=== PATIENT | male | born 1940 | race Caucasian/White ===

== ENCOUNTER 2018-09-04 19:02 | Inpatient (IN) | payer MEDICARE ==
[~2018-09-04] VITALS: Ht 180.3 cm; Wt 71.8 kg
--- NOTE | 2018-09-04 19:06 | NUR ---
PT TARUN FROM [facility]. PER REPORT PT WAS NOTED TO BE MORE ALTERED THAN USUAL. BASELINE UNKNOWN. RECTAL TEMP OF [address] MAINTENANCE SUPERVISOR. UNKNOWN HISTORY. GOWNED AND PLACE ON MONITOR. AWAITING MD GONZALEZ.
--- NOTE | 2018-09-04 19:23 | NUR ---
ASSISTANT ENGINEER AT BEDSIDE FOR BLOOD DRAW.
--- NOTE | 2018-09-04 19:28 | NUR ---
CALLED [facility] ([phone]), SPOKE WITH JUAN CARLOS ([phone]), SHE STATED THE PT NORMALLY RESPONDES TO HIS NAME, BUT IS NOT RESPODING HE NORMALLY DOES, SHE ALSO STATED THAT PT IS ON HOSPICE, BUT THAT THE FAMILY IS REQUESTING PT TO BE TREATED FULL CODE. SHE WAS UNABLE TO GIVE A MED LIST AT THE TIME OF THE CALL, HOWEVER SHE WOULD GIVE IT [facility] (UNKNOWN ETA). USE SECOND NUMBER LISTED ABOVE FOR CONTACT.
[2018-09-04] MEDS ORDERED: IV NS 0.9% 500 ML BAG IV ONE (19:30)
[2018-09-04 19:32] LABS: BASOPHILS % (AUTO) 0.4 % (0.0-2.0); EOSINOPHILS % (AUTO) 0.5 % (0.0-6.0); HEMATOCRIT 38 % (39-51); HEMOGLOBIN 12.7 g/dL (13.5-17.5); LYMPHOCYTES # (AUTO) 0.9 /CMM (0.8-4.8); LYMPHOCYTES % (AUTO) 9.5 % (20.0-44.0); MEAN CORPUSCULAR HGB CONC 33 g/dl (31.0-36.0); MEAN CORPUSCULAR VOLUME 93 fL (80-96); MONOCYTES # (AUTO) 0.6 /CMM (0.1-1.30); NEUTROPHILS # (AUTO) 7.9 /CMM (1.8-8.9); NEUTROPHILS % (AUTO) 83.6 % (43.0-81.0); PLATELET COUNT (AUTO) 166 /CMM (150-450); RED BLOOD CELL COUNT(AUTO) 4.12 MIL/uL (4.5-6.0); WHITE BLOOD COUNT (AUTO) 9.4 K/uL (4.3-11.0)
--- NOTE | 2018-09-04 19:35 | NUR ---
CALLED ANSWERING SERVICE OF DR DUMONT. PAGED SPOOL CLEANER HAND
[2018-09-04] MEDS ORDERED: ACETAMINOPHEN 650 MG/SUPP.RECT RC ONE ×2 (19:48→20:00)
[2018-09-04 19:50] LABS: ALANINE AMINOTRANSFERASE 9 U/L (12-78); ALBUMIN 2.1 g/dL (3.4-5.0); ALKALINE PHOSPHATASE 139 U/L (46-116); ASPARTATE AMINOTRANSFERASE 19 U/L (15-37); BILIRUBIN,DIRECT 0.1 mg/dL (0.0-0.2); BILIRUBIN,TOTAL 0.3 mg/dL (0.2-1.0); CALCIUM, SERUM 8.2 mg/dL (8.5-10.1); CARBON DIOXIDE 24 mmol/L (21-32); CHLORIDE 101 mmol/L (98-107); GLUCOSE 242 mg/dL (74-106); POTASSIUM 3.8 mmol/L (3.5-5.1); SODIUM SERUM 135 mmol/L (136-145); TOTAL PROTEIN, SERUM 5.7 g/dL (6.4-8.2); UREA NITROGEN, BLOOD 13 mg/dL (7-18)
[2018-09-04 19:56] LABS: APPEARANCE,URINE Turbid (CLEAR); BILIRUBIN,URINE Negative (NEGATIVE); BLOOD, URINE Small Ery/uL (NEGATIVE); COLOR,URINE Yellow (YELLOW); KETONES,URINE Negative (NEGATIVE); LEUKOCYTE ESTERASE ,URINE Large (NEGATIVE); NITRITE, URINE Positive (NEGATIVE); PH,URINE 6.5 (5.0-8.0); PROTEIN,URINE 100 mg/dl (NEGATIVE); UGLUCOSE Negative (NEGATIVE)
[2018-09-04] MEDS ORDERED: ALLO100T PO (20:03)
[2018-09-04] MEDS ORDERED: CARB-93 PO (20:04)
[2018-09-04] MEDS ORDERED: GABA-532 PO (20:05)
[2018-09-04] MEDS ORDERED: TAMS-12 GT (20:06)
[2018-09-04] MEDS ORDERED: ATOR10TA PO (20:06)
[2018-09-04] MEDS ORDERED: MULT1TAB73 PO (20:07)
[2018-09-04] MEDS ORDERED: ASPI-1169 PO (20:08)
[2018-09-04] MEDS ORDERED: QUET25TA PO (20:09)
[2018-09-04 20:11] LABS: BACTERIA,URINE Many /HPF (None Seen); SQUAMOUS EPITHELIAL CELL,UR Few /HPF (None Seen); WBC,URINE TOO NUMEROUS TO COUN /HPF (0-3)
[2018-09-04 20:12] LABS: URINE AMORPHOUS URATE Moderate /HPF (None Seen)
--- NOTE | 2018-09-04 20:35 | NUR ---
CALLED [facility] PAGED JUSTO
[2018-09-04] MEDS ORDERED: PIPERACILLIN /TAZOBACTAM 3.375 G VIAL IV ONE (20:42)
[2018-09-04] MEDS ORDERED: LEVOFLOXACIN 750 MG /D5W 150ML 150 ML IV ONE ×2 (20:42→21:00)
[2018-09-04] MEDS ORDERED: IV NS 0.9% 1,000 ML BAG IV ONE (21:00)
[2018-09-04] MEDS ORDERED: PIPERACILLIN /TAZOBACTAM 3.375 G in IV D5W 50 ML IV ONE (21:00)
--- NOTE | 2018-09-04 21:29 | NUR ---
REPORT GIVEN TO FALGUNI VUONG. PT AWAITING TRANSFER TO FLOOR.
[2018-09-04] MEDS ORDERED: HYDROCODONE/APAP 5/325MG 1 EACH TABLET PO PRN (21:30)
[2018-09-04] MEDS ORDERED: ZOLPIDEM TARTRATE 5 MG TABLET PO PRN (21:30)
[2018-09-04] MEDS ORDERED: MAG HYDROX/AL HYDROX/SIMETH 30 ML UDC PO PRN (21:30)
[2018-09-04] MEDS ORDERED: ONDANSETRON HCL/PF 4 MG/2 ML VIAL IVP PRN (21:30)
[2018-09-04] MEDS ORDERED: MAGNESIUM HYDROXIDE 30 ML UDC PO PRN (21:30)
[2018-09-04] MEDS ORDERED: ACETAMINOPHEN 325 MG TABLET PO PRN (21:30)
[2018-09-04 21:45] VITALS: BP 84/48
--- NOTE | 2018-09-04 21:51 | NUR ---
PT WAS TRANSPORTED TO [facility] FLOOR
[2018-09-04] MEDS: TAMSULOSIN 0.4 MG CAP.SR.24H GT SCH (22:00)
--- NOTE | 2018-09-04 22:00 | NUR ---
SENIOR ADMINISTRATIVE SERVICES OFFICER NOTE PATIENT ADMITTED FROM ER A/O X 1 WITH INCOHERENT WORDS. PATIENT UNABLE TO COMMUNICATE EFFECTIVELY. PATIENT HYPOTENSIVE 84/46 MD NOTIFIED ORDERED 125ML/NS TO BE GIVEN. WILL CONTINUE TO MONITOR. SKIN IS STILL WARM AND DRY TO TOUCH. PATIENT REPEATS WHAT RNS SAY. UNABLE TO TO ATTAIN ANY HX. CALLED [facility] NO RESPONSE WILL ENDORES AM TO CALL FOR PT HX. PATIENT HAS 20 G R AC PATENT INTACT FINISHING ABX/ FLUID FROM ER. PATIENT NOTED TO HAVE SACRAL SKIN BREAKDOWN. WOUND CONSULT PENDING. SAFETY PRECAUTIONS IN PLACE. RN WILL CONTINUE TO MONITOR.
[2018-09-04 22:02] LABS: ALANINE AMINOTRANSFERASE < 6 U/L (12-78); ALBUMIN 1.7 g/dL (3.4-5.0); ALKALINE PHOSPHATASE 118 U/L (46-116); ASPARTATE AMINOTRANSFERASE 18 U/L (15-37); BILIRUBIN,DIRECT 0.1 mg/dL (0.0-0.2); BILIRUBIN,TOTAL 0.3 mg/dL (0.2-1.0); TOTAL PROTEIN, SERUM 4.9 g/dL (6.4-8.2)
[2018-09-04] MEDS ORDERED: ZOLPIDEM TARTRATE 5 MG TABLET GT PRN (22:13)
[2018-09-04] MEDS ORDERED: MAGNESIUM HYDROXIDE 30 ML UDC GT PRN (22:14)
[2018-09-04] MEDS ORDERED: MAG HYDROX/AL HYDROX/SIMETH 30 ML UDC GT PRN (22:16)
[2018-09-04] MEDS ORDERED: VANCOMYCIN IV ONE (23:00)
[2018-09-04] MEDS ORDERED: NS 0.9% IV ONE (23:00)
--- NOTE | 2018-09-04 23:13 | NUR ---
JAZZ SINGER NOTE PATIENT A/O X 1, UNABLE TO FOLLOW INSTRUCTIONS UNABLE TO ADMINISTER PO MEDS, ANDONIAN AWARE NO NEW ORDERS GIVEN.
[2018-09-04] MEDS ORDERED: VANCOMYCIN 1 GM VIAL ONE (23:20)
[2018-09-05] VITALS: BP 79/50
--- NOTE | 2018-09-05 00:30 | NUR ---
PIG MACHINE CRANE OPERATOR NOTE RECHECKED PT BP, BP AT BASELINE 80'S SYSTOLIC. WILL RECHECK AGAIN. PATIENT SPEECH MORE COHERENT AT THIS TIME RN WILL CONTINUE TO MONITOR.
[2018-09-05] MEDS: IV NS 0.9% 1,000 ML IV PRN ×3 (00:40→23:12)
[2018-09-05] MEDS ORDERED: PIPERACILLIN /TAZOBACTAM 3.375 G VIAL IV ONE ×2 (00:42→05:04)
[2018-09-05] MEDS: PIPERACILLIN /TAZOBACTAM 3.375 G in IV D5W 50 ML IV SCH ×3 (00:46→12:06)
[2018-09-05 04:00] VITALS: BP 90/52
[2018-09-05 07:04] LABS: BASOPHILS % (AUTO) 0.2 % (0.0-2.0); EOSINOPHILS % (AUTO) 1.8 % (0.0-6.0); HEMATOCRIT 34 % (39-51); HEMOGLOBIN 11.3 g/dL (13.5-17.5); LYMPHOCYTES # (AUTO) 2.7 /CMM (0.8-4.8); MEAN CORPUSCULAR HGB CONC 33 g/dl (31.0-36.0); MEAN CORPUSCULAR VOLUME 94 fL (80-96); MONOCYTES # (AUTO) 0.6 /CMM (0.1-1.30); NEUTROPHILS # (AUTO) 4.6 /CMM (1.8-8.9); PLATELET COUNT (AUTO) 150 /CMM (150-450); RED BLOOD CELL COUNT(AUTO) 3.61 MIL/uL (4.5-6.0)
--- NOTE | 2018-09-05 07:30 | NUR ---
CENTRIFUGE OPERATOR OPENING NOTES RECEIVED REPORT FROM NAVIGATION OFFICER RN. PT HAD AN EPISODE OF HYPOTENSION. BP TRENDING UP. SYSTOLIC IN 90'S. PT IS CURRENTLY SLEEPING IN BED. NO OBVIOUS SIGNS OF SOB OR PAIN NOTED AT THIS TIME. ON MONITOR PT IS SB IN 50'S. BED IS LOCKED AND IN LOWEST POSITION WITH CALL LIGHT IN REACH. WILL CONTINUE TO MONITOR.
[2018-09-05 07:31] LABS: CHOLESTEROL 102 mg/dL (<200); HDL CHOLESTEROL 45 mg/dL (40-60); LDL 52 mg/dL (0-99); TRIGLYCERIDES 56 mg/dL (30-150)
--- NOTE | 2018-09-05 07:32 | NUR ---
CRYPTOLOGIST NOTE PATIENT TOLERATED THE NIGHT WITH POSITIVE TRENDING BP. POC ENDORSED TO AM FOR ROMMEL.
[2018-09-05 07:59] LABS: CALCIUM, SERUM 7.7 mg/dL (8.5-10.1); CARBON DIOXIDE 25 mmol/L (21-32); CHLORIDE 109 mmol/L (98-107); CREATININE 0.9 mg/dL (0.6-1.3); GLUCOSE 78 mg/dL (74-106); MAGNESIUM 1.8 mg/dL (1.8-2.4); PHOSPHORUS 3.2 mg/dL (2.5-4.9); POTASSIUM 4.8 mmol/L (3.5-5.1); SODIUM SERUM 141 mmol/L (136-145); UREA NITROGEN, BLOOD 10 mg/dL (7-18)
[2018-09-05 08:00] VITALS: BP 84/51
[2018-09-05] MEDS: MULTIVITAMINS,THERAGRAN 1 UDTAB TABLET GT SCH (09:00)
[2018-09-05] MEDS: CARBIDOPA/LEVODOPA 25/100 MG 1 UDTAB GT SCH ×2 (09:00→16:47)
[2018-09-05] MEDS: GABAPENTIN 100 MG CAPSULE GT SCH ×3 (09:00→16:47)
[2018-09-05] MEDS ORDERED: MULTIVITAMIN LIQ 5 ML UDC GT SCH (09:00)
[2018-09-05] MEDS: ASPIRIN 81 MG TAB.CHEW GT SCH (09:00)
[2018-09-05] MEDS: ALLOPURINOL 100 MG TABLET GT SCH (09:00)
--- NOTE | 2018-09-05 09:30 | NUR ---
PT IS CONFUSED AND DROWSY DOES NOT WANT TO BE AWAKEN TO TAKE MORNING MEDICATIONS.
[2018-09-05] MEDS ORDERED: FEE PK DOSING 1 MIN EA MC ONE (10:02)
[2018-09-05 12:00] VITALS: BP 99/65
[2018-09-05] MEDS: VANCOMYCIN 1 GM in IV D5W 250 ML IV SCH ×2 (12:07→23:46)
[2018-09-05] MEDS ORDERED: NEOMY SULF/BACITRAC ZN/POLY 15 GM TUBE TP SCH (14:30)
[2018-09-05 16:00] VITALS: BP 111/71
--- NOTE | 2018-09-05 16:32 | NUR ---
Spoke with Stacy- admin at the [facility] [phone] states patient resides at the [facility] and was on hospice care with [facility] [phone]. Hospice has been revoked when patient admitted to the hospital. Code status is DNR and Stacy from [facility] will fax POLST copy. Patient is bedbound, totally dependent with adl's. Has adequate DME at the facility. Current dc plan is to return to [facility] and reinstate hospice care. Addendum: 09/05/18 at 1633 by EL VILLATORO RN Amended: Links added.
[2018-09-05] MEDS: PIPERACILLIN /TAZOBACTAM 3.375 G in IV D5W 100 ML IV SCH (16:55)
[2018-09-05] MEDS: QUETIAPINE FUMARATE 25 MG TABLET GT SCH (17:59)
[2018-09-05] MEDS: ATORVASTATIN 10 MG TABLET GT SCH (18:00)
[2018-09-05] MEDS: HYDROGEL DRESSING 90 GM TUBE TP SCH ×2 (18:07→21:21)
[2018-09-05] MEDS: HYDROCODONE/APAP 5/325MG 1 EACH TABLET GT PRN (18:20)
--- NOTE | 2018-09-05 19:30 | NUR ---
RN NOTES RECEIVED PT. AWAKE ON BED, SR/ SINUS ARRHYTHMIA ON TELE MONITOR HR-81, ON BILATERAL ARM RESTRAINTS, CIRCULATION OF BILATERAL ARM WAS CHECKED, F/C DRAINING CLEAR YELLOW URINE, NO PAIN NOTED, NO SOB, SIDERAILSUIPX2, CONTINUE TO MONITOR
--- NOTE | 2018-09-05 19:31 | NUR ---
ESL TUTOR CLOSING NOTES GAVE REPORT TO UI UX DEVELOPER RN. PT HAD AN EPISODE OF HYPOTENSION. BP TRENDING UP. SYSTOLIC IN 90'S. PT IS CURRENTLY SLEEPING IN BED. NO OBVIOUS SIGNS OF SOB OR PAIN NOTED AT THIS TIME. ON MONITOR PT IS SB IN 50'S. BED IS LOCKED AND IN LOWEST POSITION WITH CALL LIGHT IN REACH. WILL ENDORSE CONTINUITY OF CARE TO UI UX DEVELOPER RN.
[2018-09-05 20:47] VITALS: BP 107/69
[2018-09-05] MEDS: MUPIROCIN OINT 2% 22 GM TUBE SCH (21:20)
[2018-09-05] MEDS: TAMSULOSIN 0.4 MG CAP.SR.24H GT SCH (21:20)
[2018-09-06] VITALS: BP 110/68
[2018-09-06] MEDS: PIPERACILLIN /TAZOBACTAM 3.375 G in IV D5W 100 ML IV SCH ×3 (01:13→17:04)
[2018-09-06 04:00] VITALS: BP 125/80
--- NOTE | 2018-09-06 06:26 | NUR ---
RN NOTES AWAKE, MORNING CARE RENDERED, NOT IN DISTRESS, NO PAIN NOTED, [id number] PT. NEEDS ATTENDED
--- NOTE | 2018-09-06 07:25 | NUR ---
RIGGING UP WORKER OPENING NOTES RECEIVED REPORT FROM SUPERVISOR PUBLIC MESSAGE SERVICE RN. PT IS RESTING IN BED WITH RESTRAINTS ON BILATERAL ARMS. PT IS CONFUSED AND NEEDS FREQUENT REORIENTATION. PT HAS A ANDUJAR DRAINING TO GRAVITY. PT SHOWS NO SIGNS OF SOB OR PAIN AT THIS PRESENT TIME. WILL CONTINUE TO MONITOR.
[2018-09-06 08:00] VITALS: BP 123/79
[2018-09-06] MEDS: GABAPENTIN 100 MG CAPSULE GT SCH ×3 (09:43→17:04)
[2018-09-06] MEDS: CARBIDOPA/LEVODOPA 25/100 MG 1 UDTAB GT SCH ×2 (09:43→17:04)
[2018-09-06] MEDS: MULTIVITAMINS,THERAGRAN 1 UDTAB TABLET GT SCH (09:43)
[2018-09-06] MEDS: ALLOPURINOL 100 MG TABLET GT SCH (09:43)
[2018-09-06] MEDS: ASPIRIN 81 MG TAB.CHEW GT SCH (09:43)
[2018-09-06] MEDS: MUPIROCIN OINT 2% 22 GM TUBE SCH ×2 (09:44→21:29)
[2018-09-06] MEDS: HYDROGEL DRESSING 90 GM TUBE TP SCH ×2 (09:45→21:29)
--- NOTE | 2018-09-06 10:08 | NUR ---
WOUND CARE CONSULT WOUND CARE RECEIVED CONSULT FOR SKIN BREAK DOWN ON SACRUM. WOUND CARE WILL DEFER CONSULT AND TREATMENT PLANS TO PLASTIC SURGICAL TEAM WHO ARE CURRENTLY FOLLOWING THIS PATIENT. PATIENT WITH AIDEN AT 10, ALL PRESSURE ULCER PREVENTION MEASURES ARE NOTED TO BE IN PLACE. WILL SEE PRN.
[2018-09-06 12:00] VITALS: BP 120/78
[2018-09-06] MEDS: VANCOMYCIN 1 GM in IV D5W 250 ML IV SCH (12:00)
[2018-09-06 16:00] VITALS: BP 134/66
[2018-09-06] MEDS: ATORVASTATIN 10 MG TABLET GT SCH (17:03)
[2018-09-06] MEDS: QUETIAPINE FUMARATE 25 MG TABLET GT SCH (17:04)
--- NOTE | 2018-09-06 19:10 | NUR ---
MS RN OPENING NOTES Received patient resting in bed. Patient is confused, needs frequent reorientation. Breathing even and unlabored. Not in any distress. IVATB of zosyn currently infusing. Fernández catheter in place- draining yellow urine. No signs of discomfort noted at this time. Isolation precaution maintained. Will continue to monitor accordingly
--- NOTE | 2018-09-06 19:11 | NUR ---
RN MS CLOSING NOTES GAVE REPORT TO INSURANCE PROCESSING CLERK RN. PT IS RESTING IN BED WITH RESTRAINTS ON BILATERAL ARMS. PT IS CONFUSED AND NEEDS FREQUENT REORIENTATION. PT HAS A ANDUJAR DRAINING TO GRAVITY. PT SHOWS NO SIGNS OF SOB OR PAIN AT THIS PRESENT TIME. ZOSYN IS CURRENTLY TRANSFUSING. WILL ENDORSE CONTINUITY OF CARE TO INSURANCE PROCESSING CLERK RN.
[2018-09-06 20:00] VITALS: BP 141/56
[2018-09-06] MEDS: TAMSULOSIN 0.4 MG CAP.SR.24H GT SCH (21:29)
[2018-09-06] MEDS: IV NS 0.9% 1,000 ML IV PRN (23:37)
[2018-09-07] MEDS ORDERED: VANCOMYCIN 0.75 GM in IV D5W 250 ML IV SCH ×2
[2018-09-07] MEDS: PIPERACILLIN /TAZOBACTAM 3.375 G in IV D5W 100 ML IV SCH ×3 (01:05→17:34)
--- NOTE | 2018-09-07 03:00 | NUR ---
RN NOTES Patient noted to have moved his bowels. Patient changed. Wound treatment done
[2018-09-07 04:00] VITALS: BP 119/66
--- NOTE | 2018-09-07 06:30 | NUR ---
MS RN CLOSING NOTES Patient resting in bed, oriented to self, needs frequent reorientation. Breathing even and unlabored. Not in any distress. Peripheral IV infusing at 125mL/hr. Fernández catheter in place- draining clear, yellow urine. No signs of discomfort noted at this time. Isolation precaution maintained. All needs attended to. Safety measures in place; call gunter within reach, bed in low, locked position. Will endorse ROMMEL to oncoming RN
[2018-09-07 07:21] LABS: CALCIUM, SERUM 8.1 mg/dL (8.5-10.1); CARBON DIOXIDE 27 mmol/L (21-32); CHLORIDE 108 mmol/L (98-107); GLUCOSE 86 mg/dL (74-106); POTASSIUM 3.9 mmol/L (3.5-5.1); SODIUM SERUM 141 mmol/L (136-145); UREA NITROGEN, BLOOD 9 mg/dL (7-18)
--- NOTE | 2018-09-07 07:25 | NUR ---
Nurse Notes: received report from the night nurse Mayra Valentin RN, In no respiratory distress. Fernández to gravity. NS is infusing at 125 cc per hour. heplock x 2 in right arm.
[2018-09-07 08:00] VITALS: BP 132/72
[2018-09-07] MEDS: ALLOPURINOL 100 MG TABLET GT SCH (09:32)
[2018-09-07] MEDS: CARBIDOPA/LEVODOPA 25/100 MG 1 UDTAB GT SCH ×2 (09:32→17:34)
[2018-09-07] MEDS: ASPIRIN 81 MG TAB.CHEW GT SCH (09:32)
[2018-09-07] MEDS: MULTIVITAMINS,THERAGRAN 1 UDTAB TABLET GT SCH (09:32)
[2018-09-07] MEDS: GABAPENTIN 100 MG CAPSULE GT SCH ×3 (09:32→17:34)
[2018-09-07] MEDS: MUPIROCIN OINT 2% 22 GM TUBE SCH ×2 (09:33→21:18)
[2018-09-07] MEDS: HYDROGEL DRESSING 90 GM TUBE TP SCH ×2 (09:33→21:18)
--- NOTE | 2018-09-07 12:41 | NUR ---
Nurse Notes: Urine culture sensitivity and ID will be ready tomorrow 0900[facility] Sourav Greer was notified.
[2018-09-07 13:16] VITALS: BP 98/54
[2018-09-07] MEDS: IV NS 0.9% 1,000 ML IV PRN (14:01)
--- NOTE | 2018-09-07 15:45 | NUR ---
Nurse Notes: Dr Matt Mccord called back and stated the debridement will not be done til sunday. patient will be on hospice after the Debridement. Remains on IV antibiotics, rocephin.
[2018-09-07 16:00] VITALS: BP 116/70
--- NOTE | 2018-09-07 16:06 | NUR ---
Nurse Notes: Dr Matt Mccord stated will not do the Debridement, okay to sent patient home with Hospice. Sourav Greer was text.
[2018-09-07] MEDS: ATORVASTATIN 10 MG TABLET GT SCH (18:02)
[2018-09-07] MEDS: QUETIAPINE FUMARATE 25 MG TABLET GT SCH (18:02)
--- NOTE | 2018-09-07 19:33 | NUR ---
SHIFT REPORT: report given to the night nurse Valdez Adler RN. 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 patient is not coughing. IV Normal saline is infusing, zosyn infusing over 4 hours.
[2018-09-07 20:00] VITALS: BP 93/50
--- NOTE | 2018-09-07 20:00 | NUR ---
PHYSICAL THERAPIST CLINIC DIRECTOR OPENING NOTES RECEIVED PATIENT ASLEEP, RESTING COMFORTABLY IN BED. NO SIGNS OF RESPIRATORY DISTRESS, OR SOB. NO SIGNS OF FACIAL GRIMACING, OR DISCOMFORT. PATIENT ON CONTACT ISOLATION FOR MRSA NARES. IV SITE PATENT AND INTACT. SAFETY PRECAUTIONS IMPLEMENTED. CALL LIGHT WITHIN REACH. WILL CONTINUE TO MONITOR PATIENT THROUGHOUT THE SHIFT.
[2018-09-07] MEDS: TAMSULOSIN 0.4 MG CAP.SR.24H GT SCH (21:21)
[2018-09-07 21:35] VITALS: BP 126/74
[2018-09-08] MEDS: IV NS 0.9% 1,000 ML IV PRN ×2 (00:07→18:56)
[2018-09-08] MEDS: PIPERACILLIN /TAZOBACTAM 3.375 G in IV D5W 100 ML IV SCH ×3 (00:25→17:59)
[2018-09-08 04:00] VITALS: BP_SYST 97; BP_SYST 99; BP_DIAS 57; BP_DIAS 61
--- NOTE | 2018-09-08 06:30 | NUR ---
RN/MS CLOSING NOTES PATIENT IS RESTING IN BED COMFORTABLY, ORIENTED TO SELF, NEEDS FREQUENT REORIENTATION. BREATHING EVEN AND UNLABORED. NO SIGNS OF RESPIRATORY DISTRESS. NO SIGNS OF SHORTNESS OF BREATH. PERIPHERAL IV INFUSING AT 125 ML/HR. ANDUJAR CATHETER IN PLACE- DRAINING CLEAR, YELLOW URINE. TOTAL OUTPUT IS 1700 ML OF URINE. NO SIGNS OF FACIAL GRIMACING OR DISCOMFORT NOTED AT THIS TIME. ISOLATION PRECAUTION MAINTAINED. PATIENT TURNED EVERY 2 HOURS. ALL NEEDS ATTENDED TO. SAFETY PRECAUTIONS IMPLEMENTED; CALL LIGHT WITH REACH, SIDERAILS UP X2, BED LOW, LOCKED POSITION. WILL ENDORSE TO AM SHIFT FOR CONTINUITY OF CARE.
--- NOTE | 2018-09-08 06:45 | NUR ---
RN NOTES WOUND CARE IMPLEMENTED ON SACRUM. APPLIED HYDROGEL AND MEPILEX TO COVER.
[2018-09-08 07:24] LABS: CARBON DIOXIDE 24 mmol/L (21-32); CHLORIDE 107 mmol/L (98-107); GLUCOSE 82 mg/dL (74-106); POTASSIUM 3.4 mmol/L (3.5-5.1); SODIUM SERUM 140 mmol/L (136-145); UREA NITROGEN, BLOOD 8 mg/dL (7-18)
[2018-09-08 08:00] VITALS: BP 126/71
[2018-09-08] MEDS ORDERED: POTASSIUM CHLORIDE 20 MEQ POWDER PACKET GT ONE (09:00)
[2018-09-08] MEDS ORDERED: POTASSIUM CHLORIDE 20 MEQ POWDER PACKET GT SCH (09:00)
[2018-09-08] MEDS: CARBIDOPA/LEVODOPA 25/100 MG 1 UDTAB GT SCH ×2 (09:37→17:58)
[2018-09-08] MEDS: MULTIVITAMINS,THERAGRAN 1 UDTAB TABLET GT SCH (09:37)
[2018-09-08] MEDS: ASPIRIN 81 MG TAB.CHEW GT SCH (09:37)
[2018-09-08] MEDS: ALLOPURINOL 100 MG TABLET GT SCH (09:37)
[2018-09-08] MEDS: GABAPENTIN 100 MG CAPSULE GT SCH ×3 (09:38→17:57)
[2018-09-08] MEDS: Z GUARD REMEDY 2 OZ OINT TP PRN ×2 (09:45→21:22)
[2018-09-08] MEDS: HYDROGEL DRESSING 90 GM TUBE TP SCH ×2 (09:45→21:22)
--- NOTE | 2018-09-08 10:15 | NUR ---
Dr Benjamin in and seen patient with orders for k level 3.4. talked to the patient power of finance attorney about the patient,s discharge planning process
[2018-09-08] MEDS: MUPIROCIN OINT 2% 22 GM TUBE SCH ×2 (10:36→21:23)
[2018-09-08 12:00] VITALS: BP 135/76
--- NOTE | 2018-09-08 12:19 | NUR ---
Dressing done to the coccyx area, cleaned and kept dry
[2018-09-08] MEDS: QUETIAPINE FUMARATE 25 MG TABLET GT SCH (17:58)
[2018-09-08] MEDS: ATORVASTATIN 10 MG TABLET GT SCH (17:58)
--- NOTE | 2018-09-08 19:20 | NUR ---
MS RN OPENING NOTES Received patient A/O x1, awake on Wynn's position on bed with bilateral soft wrist restraints noted. On RA, no SOB/respiratory distress noted. No signs of discomfort noted at this time. On fall precautions, call light within easy reach. Will continue to monitor accordingly.
[2018-09-08 20:00] VITALS: BP 103/58
[2018-09-08] MEDS: TAMSULOSIN 0.4 MG CAP.SR.24H GT SCH (21:23)
[2018-09-09] MEDS: PIPERACILLIN /TAZOBACTAM 3.375 G in IV D5W 100 ML IV SCH ×2 (00:29→09:41)
[2018-09-09] MEDS: IV NS 0.9% 1,000 ML IV PRN (02:43)
--- NOTE | 2018-09-09 02:49 | NUR ---
MS RN NOTES Patient noted have not sleep yet since the start of shift. Administered Ambien as ordered. Will continue to monitor accordingly.
[2018-09-09 04:00] VITALS: BP 118/73
[2018-09-09] MEDS: HYDROCODONE/APAP 5/325MG 1 EACH TABLET GT PRN ×3 (05:02→13:51)
--- NOTE | 2018-09-09 05:03 | NUR ---
MS RN NOTES Patient noted screaming, moaning and facial grimacing. Patient claimed in pain but unable to scale and specify where is the pain. Administered Boyden 5/325 as ordered with vanilla pudding. Patient tolerated the meds and pudding well. Will continue to monitor.
--- NOTE | 2018-09-09 06:57 | NUR ---
MS RN CLOSING NOTES Patient asleep on Wynn's position on bed. On RA, no SOB/respiratory distress noted. Afebrile the whole shift. No new unusualities noted. All due meds given as ordered. With bilateral soft wrist restraints as ordered, monitored accordingly. Endorsed to the next shift.
[2018-09-09 07:09] LABS: CALCIUM, SERUM 7.8 mg/dL (8.5-10.1); CARBON DIOXIDE 25 mmol/L (21-32); CHLORIDE 110 mmol/L (98-107); CREATININE 1.1 mg/dL (0.6-1.3); GLUCOSE 102 mg/dL (74-106); POTASSIUM 3.6 mmol/L (3.5-5.1); SODIUM SERUM 141 mmol/L (136-145); UREA NITROGEN, BLOOD 6 mg/dL (7-18)
[2018-09-09 08:00] VITALS: BP 114/61
[2018-09-09] MEDS: MULTIVITAMINS,THERAGRAN 1 UDTAB TABLET GT SCH (09:41)
[2018-09-09] MEDS: ASPIRIN 81 MG TAB.CHEW GT SCH (09:41)
[2018-09-09] MEDS: MUPIROCIN OINT 2% 22 GM TUBE SCH (09:41)
[2018-09-09] MEDS: ALLOPURINOL 100 MG TABLET GT SCH (09:41)
[2018-09-09] MEDS: CARBIDOPA/LEVODOPA 25/100 MG 1 UDTAB GT SCH (09:41)
[2018-09-09] MEDS: GABAPENTIN 100 MG CAPSULE GT SCH ×2 (09:41→13:53)
[2018-09-09] MEDS: HYDROGEL DRESSING 90 GM TUBE TP SCH (09:42)
== END 2018-09-09 16:10 | DRG 871 ==
LOC: ER 19:02 → TELE-TD 21:43 → TELE1 23:51 → MEDSG1 09-06 12:30
PROVIDERS: ADMIT Family Medicine; ATTEND Nurse Practitioner Acute Care
DX: A41.9 Sepsis, unspecified organism (principal); L89.153 Pressure ulcer of sacral region, stage 3; G93.41 Metabolic encephalopathy; E43 Unspecified severe protein-calorie malnutrition; N39.0 Urinary tract infection, site not specified; E87.2 Acidosis; E87.1 Hypo-osmolality and hyponatremia; R64 Cachexia; F02.81 Dementia in other diseases classified elsewhere, unspecified severity, with behavioral disturbance; D63.8 Anemia in other chronic diseases classified elsewhere; E78.5 Hyperlipidemia, unspecified; M10.9 Gout, unspecified; N40.0 Benign prostatic hyperplasia without lower urinary tract symptoms; Z79.82 Long term (current) use of aspirin; Z79.899 Other long term (current) drug therapy; Z66 Do not resuscitate; Z51.5 Encounter for palliative care; G20 Parkinson's disease; E86.1 Hypovolemia; E83.51 Hypocalcemia; R73.9 Hyperglycemia, unspecified; S71.112A Laceration without foreign body, left thigh, initial encounter; S71.111A Laceration without foreign body, right thigh, initial encounter; X58.XXXA Exposure to other specified factors, initial encounter; Y92.9 Unspecified place or not applicable; Z22.322 Carrier or suspected carrier of Methicillin resistant Staphylococcus aureus; B96.5 Pseudomonas (aeruginosa) (mallei) (pseudomallei) as the cause of diseases classified elsewhere
CPT/HCPCS: 36415; 71045-TC; 80048-TC; 80061-TC; 80076-TC; 80202-TC; 81000-TC; 83605-TC; 83735-TC; 84100-TC; 84484-TC; 85025-TC; 85730-TC; 87040-TC; 87081-TC; 87086-TC; 87186-TC; 92526; 92611-TC; A6248; A6403; G0378; J1956; J2543; J3370; J7030; J7040; J7042; J7050; J7060

== ENCOUNTER 2018-09-30 16:05 | Inpatient (IN) | payer MEDICARE ==
[~2018-09-30] VITALS: Ht 188 cm; Wt 65.8 kg
[~2018-09-30 16:05] MED LIST: ALLO100T PO; ASPI-1169 PO; ATOR10TA PO; CARB-93 PO; GABA-532 PO; MULT1TAB73 PO; QUET25TA PO; TAMS-12 GT
--- NOTE | 2018-09-30 16:13 | NUR ---
TARUN FROM BOARD AND CARE FOR C/O MORE ALTERED THAN USUAL. UNKNOWN LAST KNOWN WELL TIME PER FACILITY. BS 103 IN FIELD. TO ER BED8, AOX2, NOT IN DISTRESS, HOOKED TO MONITOR, CHANGED TO GOWN, PROVIDED W WARM BLANKET. DR DANIELSON AT BEDSIDE
[2018-09-30] MEDS ORDERED: IV NS 0.9% 500 ML BAG IV ONE (16:30)
[2018-09-30 16:43] LABS: BASOPHILS % (AUTO) 0.3 % (0.0-2.0); EOSINOPHILS % (AUTO) 3.2 % (0.0-6.0); HEMATOCRIT 38 % (39-51); HEMOGLOBIN 12.9 g/dL (13.5-17.5); LYMPHOCYTES # (AUTO) 2.4 /CMM (0.8-4.8); LYMPHOCYTES % (AUTO) 45.6 % (20.0-44.0); MEAN CORPUSCULAR HGB CONC 34 g/dl (31.0-36.0); MEAN CORPUSCULAR VOLUME 94 fL (80-96); MONOCYTES # (AUTO) 0.4 /CMM (0.1-1.30); MONOCYTES % (AUTO) 7.2 % (2.0-12.0); NEUTROPHILS # (AUTO) 2.3 /CMM (1.8-8.9); NEUTROPHILS % (AUTO) 43.7 % (43.0-81.0); PLATELET COUNT (AUTO) 184 /CMM (150-450); RED BLOOD CELL COUNT(AUTO) 4.08 MIL/uL (4.5-6.0); WHITE BLOOD COUNT (AUTO) 5.3 K/uL (4.3-11.0)
[2018-09-30 16:54] LABS: CALCIUM, SERUM 8.4 mg/dL (8.5-10.1); CARBON DIOXIDE 29 mmol/L (21-32); CHLORIDE 112 mmol/L (98-107); CREATININE 0.9 mg/dL (0.6-1.3); GLUCOSE 91 mg/dL (74-106); POTASSIUM 3.6 mmol/L (3.5-5.1); SODIUM SERUM 146 mmol/L (136-145); UREA NITROGEN, BLOOD 12 mg/dL (7-18)
[2018-09-30 16:56] LABS: SERUM AMMONIA 14 umol/L (11-32)
--- NOTE | 2018-09-30 16:59 | NUR ---
URINE SAMPLE SENT TO LAB
[2018-09-30 17:00] LABS: ALANINE AMINOTRANSFERASE 9 U/L (12-78); ALBUMIN 2.4 g/dL (3.4-5.0); ALCOHOL, BLOOD < 3 mg/dL (0-0); ALKALINE PHOSPHATASE 90 U/L (46-116); ASPARTATE AMINOTRANSFERASE 15 U/L (15-37); BILIRUBIN,DIRECT 0.1 mg/dL (0.0-0.2); BILIRUBIN,TOTAL 0.3 mg/dL (0.2-1.0); SALICYLATE < 2.8 mg/dL (2.8-20.0); TOTAL PROTEIN, SERUM 5.4 g/dL (6.4-8.2)
[2018-09-30 17:01] LABS: ACETAMINOPHEN < 2 ug/ml (10-30)
[2018-09-30 17:04] LABS: APPEARANCE,URINE Clear (CLEAR); BILIRUBIN,URINE Negative (NEGATIVE); BLOOD, URINE Negative Ery/uL (NEGATIVE); COLOR,URINE Yellow (YELLOW); KETONES,URINE Negative (NEGATIVE); LEUKOCYTE ESTERASE ,URINE Negative (NEGATIVE); NITRITE, URINE Negative (NEGATIVE); PROTEIN,URINE Negative (NEGATIVE); UGLUCOSE Negative (NEGATIVE); UROBILINOGEN,URINE 0.2 EU/dL (0.2)
[2018-09-30 17:15] LABS: THYROID STIMULATING HORMONE 1.872 uIU/mL (0.358-3.74)
[2018-09-30] MEDS ORDERED: TRAM50TA2 PO (17:39)
[2018-09-30] MEDS ORDERED: CLOT15CR63 TP (17:39)
--- NOTE | 2018-09-30 17:46 | NUR ---
CALLED NURSING SUP. FOR TELE BED
--- NOTE | 2018-09-30 17:59 | NUR ---
TELE 107 FOR AMS, PRASHANT SHIELDS ADMITTING
--- NOTE | 2018-09-30 18:31 | NUR ---
REPORT GIVEN TO MS RETANA OF TELE UNIT
--- NOTE | 2018-09-30 19:19 | NUR ---
REPORT GIVEN TO ADALI VUONG FOR ROMMEL
--- NOTE | 2018-09-30 19:55 | NUR ---
DEICER TESTER NOTE PATIENT RECEIVED FROM ER IN [facility]. NO S/S OF DISTRESS NOTED V/S WNL. PATIENT A/O X 1, REQUESTING FOOD. PATIENT IN NO APPARENT S.S OF RESPIRATORY OF CARDIAC DISTRESS. PATIENT SR ON THE MONITOR. PATIENT APPEARS SLIGHTLY AGITATED, PENDING ORDERS FROM MYLENE VYAS. PATIENT HAS 18G IN RFA. PATENT IN TACT. PATIENT BATHED AND CHANGED RENDESS NOTED ON GROIN AREA NAD 2ND TOE RIGHT FOOT. SAFETY PRECAUTIONS IN PLACE BED LOWEST POSITIONS SIDE RAILS UP X3. RN WILL CONTINUE TO JANES.
--- NOTE | 2018-09-30 19:55 | NUR ---
TELECOMMUNICATIONS SALES REPRESENTATIVE NOTE PATIENT RECEIVED FROM ER IN [facility]. PATIENT TRANSFERRED SAFETY. VS TAKEN WNL. NO S.S. OF ACUTE DISTRESS. PATIENT PLACED ON DECAL DECORATOR. PAUSES NOTED MD NOTIFIED STAT EKG ORDERED. PATIENT A/O X 1 UNABLE TO BE ORIENTED. PATIENT ABLE TO REPEAT COMMANDS, BUT UNABLE TO FOLLOW. PATIENT HAD 18 G IN RFA PATENT HOWEVER PATIENT PULLED IT OUT ON ADMISSION. ALYSON NOTIFIED ORDER FOR RESTRAINTS GIVEN. PATIENT GIVEN NEW IV 22 G IN TOSHA. PATIENT PLACED ON RESTRAINTS. PATIENT GIVEN BATH AND CHANGED. DIAPER NOTED TO HAVE YELLOW URINE. RN WILL CONTINUE TO MONITOR. AND GIVE CARE RENDERED.
[2018-09-30 20:00] VITALS: BP 130/86
--- NOTE | 2018-09-30 20:00 | NUR ---
PT WAS TRANSFERRED TO 107 IN STALE CONDITION UNDER ACLS PROTOCOL
--- NOTE | 2018-09-30 20:00 | NUR ---
MS VUONG NOTE LONG PAUSE NOTED ON EKG, STAT EKG ORDERED, ELIZABETH SHIELDS AWARE OF RESULTS. Addendum: 10/01/18 at 0638 by BROCK RIVERS RN LAXMI HART
[2018-09-30] MEDS ORDERED: Z GUARD REMEDY 2 OZ OINT TP PRN (21:00)
[2018-09-30] MEDS ORDERED: TRAMADOL HCL 50 MG TABLET PO PRN (21:00)
[2018-09-30] MEDS ORDERED: ACETAMINOPHEN 325 MG TABLET PO PRN (21:00)
[2018-09-30] MEDS ORDERED: ONDANSETRON HCL/PF 4 MG/2 ML VIAL IVP PRN (21:00)
--- NOTE | 2018-09-30 21:33 | NUR ---
PER DIEM REGISTERED NURSE NOTE CALLED PATIENTS NEXT OF JUSTINE QUICK [phone]. PER JUSTINE HE IS THE DPOA. HE STATES THE PATIENT WAS ADMITTED TO HOSPICE IN [place] AND HAS DNR. JUSTINE ALSO STATED THAT THE PATIENT SHOULD MAINTAIN DNR STATUS, BUT IS OK WITH INTUBATION. NOTIFIED OF CODE STATUS. JUSTINE AGREED TO DROP PAPER WORK AND COPIES OF DPOA AND POLST TOMORROW IN THE AM. WILL ENDORSE TO AM SHIFT. CALLED [facility] TO CONFIRM PATIENT PLACEMENT. [facility] CONFIRMED AND CONFIRMED PATIENTS ALLERGY TO [place]. NOTIFIED [facility] THAT NO RECORDS OF ADVANCED DIRECTIVE HAVE MADE IT TO THE HOSPITAL. AGREED TO FAX IN THE AM. FAX NUMBER GIVEN TO THEM. WILL ENDORSE TO AM TO FOLLOW UP WITH [facility].
[2018-09-30] MEDS: ENOXAPARIN SODIUM 40 MG/0.4 ML DISP.SYRIN SQ SCH (22:01)
[2018-09-30] MEDS: TAMSULOSIN 0.4 MG CAP.SR.24H GT SCH (22:01)
[2018-10-01] VITALS: BP 150/87
[2018-10-01] MEDS: IV 1/2NS 1000 ML 1,000 ML IV PRN ×2 (02:16→17:28)
[2018-10-01 04:00] VITALS: BP 138/68
[2018-10-01 06:16] LABS: BASOPHILS % (AUTO) 0.1 % (0.0-2.0); EOSINOPHILS % (AUTO) 2.9 % (0.0-6.0); HEMATOCRIT 36 % (39-51); LYMPHOCYTES # (AUTO) 2.7 /CMM (0.8-4.8); LYMPHOCYTES % (AUTO) 50.6 % (20.0-44.0); MEAN CORPUSCULAR HGB CONC 34 g/dl (31.0-36.0); MEAN CORPUSCULAR VOLUME 94 fL (80-96); MONOCYTES # (AUTO) 0.3 /CMM (0.1-1.30); NEUTROPHILS # (AUTO) 2.1 /CMM (1.8-8.9); NEUTROPHILS % (AUTO) 40.4 % (43.0-81.0); PLATELET COUNT (AUTO) 175 /CMM (150-450); RED BLOOD CELL COUNT(AUTO) 3.81 MIL/uL (4.5-6.0); WHITE BLOOD COUNT (AUTO) 5.3 K/uL (4.3-11.0)
[2018-10-01 06:41] LABS: CHOLESTEROL 113 mg/dL (<200); HDL CHOLESTEROL 48 mg/dL (40-60); LDL 50 mg/dL (0-99); THYROID STIMULATING HORMONE 1.589 uIU/mL (0.358-3.74); TRIGLYCERIDES 71 mg/dL (30-150)
[2018-10-01 06:50] LABS: ALANINE AMINOTRANSFERASE 12 U/L (12-78); ALBUMIN 2.3 g/dL (3.4-5.0); ALKALINE PHOSPHATASE 73 U/L (46-116); ASPARTATE AMINOTRANSFERASE 16 U/L (15-37); BILIRUBIN,TOTAL 0.4 mg/dL (0.2-1.0); CALCIUM, SERUM 8.1 mg/dL (8.5-10.1); CARBON DIOXIDE 27 mmol/L (21-32); CHLORIDE 111 mmol/L (98-107); GLUCOSE 84 mg/dL (74-106); MAGNESIUM 1.7 mg/dL (1.8-2.4); PHOSPHORUS 2.6 mg/dL (2.5-4.9); POTASSIUM 3.4 mmol/L (3.5-5.1); SODIUM SERUM 146 mmol/L (136-145); TOTAL PROTEIN, SERUM 5.2 g/dL (6.4-8.2); UREA NITROGEN, BLOOD 11 mg/dL (7-18)
[2018-10-01 07:18] LABS: IRON, SERUM 92 ug/dl (50-175); TOTAL IRON BINDING CAPACITY 177 ug/dl (250-450)
[2018-10-01 08:00] VITALS: BP 140/90
[2018-10-01] MEDS: GABAPENTIN 100 MG CAPSULE PO SCH ×3 (08:13→16:12)
[2018-10-01] MEDS: ASPIRIN 81 MG TAB.CHEW PO SCH (08:14)
[2018-10-01] MEDS: CARBIDOPA/LEVODOPA 25/100 MG 1 UDTAB PO SCH ×2 (08:14→16:12)
[2018-10-01] MEDS: CLOTRIMAZOLE 1% 15 GM TUBE TP SCH ×3 (08:14→17:15)
[2018-10-01] MEDS: ALLOPURINOL 100 MG TABLET PO SCH (08:14)
--- NOTE | 2018-10-01 09:47 | NUR ---
WOUND CARE CONSULT: PT PRESENTS WITH SACRAL SCARRING, PRESENT ON ADMISSION. RECOMMENDATIONS MADE FOR SKIN PROTECTION AND DISCUSSED WITH NURSING STAFF. PT HAS BEEN FOLLOWED BY PLASTIC SURGERY TEAM FOR WOUND TREATMENT. WILL SEE PRN. [facility].
[2018-10-01] MEDS ORDERED: POLYVINYL ALCOHOL 15 ML BOTTLE EACHEYE PRN (12:00)
[2018-10-01] MEDS ORDERED: POTASSIUM CHLORIDE 20 MEQ TAB.PRT.SR PO SCH (12:00)
[2018-10-01 16:00] VITALS: BP 132/76
[2018-10-01] MEDS: ENSURE ENLIVE 237 ML LIQUID (VANILLA) PO SCH (16:12)
[2018-10-01] MEDS: Magnesium 1GM/D5W 100ML PREMIX 100 ML IV SCH ×2 (16:55→17:15)
[2018-10-01] MEDS: QUETIAPINE FUMARATE 25 MG TABLET PO SCH (17:14)
[2018-10-01] MEDS: ATORVASTATIN 10 MG TABLET PO SCH (17:14)
--- NOTE | 2018-10-01 19:22 | NUR ---
MS RN NOTES RECEIVED PT ON BED. CONFUSED. ON BILATERAL SOFT RESTRAINTS. ON NASAL CANNULA 2LPM NO RESPIRATORY DISTRESS NOTED. IV ACCESS ANALISA MIDLINE NS @ 75CC/HR . HEAD OF BED ELEVATED. SIDE RAILS UP. CALL LIGHT WITHIN REACH. BED ALARM ON. BED IN LOCK AND LOW POSITION. WILL MONITOR PT CLOSELY.
[2018-10-01 20:00] VITALS: BP 114/75
[2018-10-01] MEDS: TAMSULOSIN 0.4 MG CAP.SR.24H GT SCH (21:07)
[2018-10-01] MEDS: ENOXAPARIN SODIUM 40 MG/0.4 ML DISP.SYRIN SQ SCH (21:07)
[2018-10-02 04:00] VITALS: BP 145/70
[2018-10-02 04:10] VITALS: BP 145/70
[2018-10-02 06:25] LABS: BASOPHILS % (AUTO) 0.2 % (0.0-2.0); EOSINOPHILS % (AUTO) 2.7 % (0.0-6.0); HEMATOCRIT 39 % (39-51); HEMOGLOBIN 13.1 g/dL (13.5-17.5); LYMPHOCYTES # (AUTO) 2.6 /CMM (0.8-4.8); LYMPHOCYTES % (AUTO) 29.9 % (20.0-44.0); MEAN CORPUSCULAR HGB CONC 33 g/dl (31.0-36.0); MEAN CORPUSCULAR VOLUME 95 fL (80-96); MONOCYTES # (AUTO) 0.6 /CMM (0.1-1.30); MONOCYTES % (AUTO) 6.5 % (2.0-12.0); NEUTROPHILS # (AUTO) 5.4 /CMM (1.8-8.9); NEUTROPHILS % (AUTO) 60.7 % (43.0-81.0); PLATELET COUNT (AUTO) 176 /CMM (150-450); RED BLOOD CELL COUNT(AUTO) 4.13 MIL/uL (4.5-6.0); WHITE BLOOD COUNT (AUTO) 8.8 K/uL (4.3-11.0)
--- NOTE | 2018-10-02 06:36 | NUR ---
MS RN NOTES NO ACUTE CHANGES NOTED DURING THE SHIFT. NO RESPIRATORY DISTRESS NOTED. WILL ENDORSE TO THE AM NURSE FOR CONTINUITY OF CARE.
[2018-10-02 06:56] LABS: CALCIUM, SERUM 8.1 mg/dL (8.5-10.1); CARBON DIOXIDE 27 mmol/L (21-32); CHLORIDE 106 mmol/L (98-107); CREATININE 1.2 mg/dL (0.6-1.3); GLUCOSE 86 mg/dL (74-106); PHOSPHORUS 2.7 mg/dL (2.5-4.9); POTASSIUM 3.8 mmol/L (3.5-5.1); SODIUM SERUM 139 mmol/L (136-145); UREA NITROGEN, BLOOD 12 mg/dL (7-18)
--- NOTE | 2018-10-02 07:00 | NUR ---
RN OPENING NOTES RECEIVED PATIENT ON BED. CONFUSED. ON BILATERAL SOFT RESTRAINTS. ON NASAL CANNULA 2LPM NO RESPIRATORY DISTRESS NOTED. IV ACCESS ANALISA MIDLINE NS @ 75CC/HR, INTACT AND PATENT. HEAD OF BED ELEVATED. SIDE RAILS UP. CALL LIGHT WITHIN REACH. BED ALARM ON. BED IN LOCK AND LOW POSITION. WILL MONITOR ACCORDINGLY
[2018-10-02 08:00] VITALS: BP 112/67
[2018-10-02] MEDS: ALLOPURINOL 100 MG TABLET PO SCH (08:35)
[2018-10-02] MEDS: ENSURE ENLIVE 237 ML LIQUID (VANILLA) PO SCH ×2 (08:35→17:37)
[2018-10-02] MEDS: ASPIRIN 81 MG TAB.CHEW PO SCH (08:35)
[2018-10-02] MEDS: GABAPENTIN 100 MG CAPSULE PO SCH ×3 (08:35→17:31)
[2018-10-02] MEDS: CLOTRIMAZOLE 1% 15 GM TUBE TP SCH ×4 (08:36→17:37)
[2018-10-02] MEDS: CARBIDOPA/LEVODOPA 25/100 MG 1 UDTAB PO SCH ×2 (08:36→17:31)
[2018-10-02] MEDS: IV 1/2NS 1000 ML 1,000 ML IV PRN (08:46)
[2018-10-02 16:00] VITALS: BP 129/75
[2018-10-02] MEDS: QUETIAPINE FUMARATE 25 MG TABLET PO SCH (17:31)
[2018-10-02] MEDS: ATORVASTATIN 10 MG TABLET PO SCH (17:31)
--- NOTE | 2018-10-02 19:30 | NUR ---
RN CLOSING NOTES PATIENT IN STABLE CONDITION. ALL NEEDS ATTENDED AND PROVIDED. ALL DUE MEDICATIONS GIVEN ORDERED. KEPT PATIENT SAFE AND COMFORTABLE. STILL ON BILATERAL RESTRAINTS, PULLING IV LINES AND GETTING OUT OF BED. BED IN LOW/LOCKED POSITION, SIDERAILS UP, HOB ELEVATED. BED ALARM ON. FOR DISCHARGE, IT SYSTEMS MANAGER TIME AT 1999. ENDORSED TO NIGHT RN FOR ROMMEL.
--- NOTE | 2018-10-02 19:32 | NUR ---
MS RN OPENING NOTES: RECIEVED PT IN STABLE CONDITION. GOT ENDORSEMENT FOR D/C BACK TO SNIFF AT 8 PM. PT CURRENTLY IN NO DISTRESS AND A OX1. WILL CONTINUE TO MONITER UNTIL DISCHARGE.
[2018-10-02 20:00] VITALS: BP 112/70
[2018-10-02] MEDS: TAMSULOSIN 0.4 MG CAP.SR.24H GT SCH (21:51)
[2018-10-02] MEDS: ENOXAPARIN SODIUM 40 MG/0.4 ML DISP.SYRIN SQ SCH (21:51)
--- NOTE | 2018-10-02 23:53 | NUR ---
PT PICKED UP BY RN CHARGE, REPORT ENDORSED. TO BE TAKEN BACK TO BOARD AND CARE SNIFF WHERE THERE ARE INSTRUCTIONS FOR HOSPICE. CURRENTLY DNRI/DNI. ALL LINES REMOVED AND ID TAKEN OFF. PT IN STABLE CONDITION UPON DISCHARGE AND IN NO ACUTE DISTRESS.
== END 2018-10-03 00:15 | disposition home or self-care (01) | DRG 640 ==
LOC: ER 16:12 → TELE1 18:44 → MEDSG1 10-01 10:34
PROVIDERS: ADMIT Nurse Practitioner Acute Care; ATTEND Nurse Practitioner Acute Care
PROC: 05HB33Z Insertion of Infusion Device into Right Basilic Vein, Percutaneous Approach (ICD-10-PCS; principal; 2018-10-01)
DX: E86.0 Dehydration (principal); G93.41 Metabolic encephalopathy; E87.0 Hyperosmolality and hypernatremia; E78.5 Hyperlipidemia, unspecified; F02.80 Dementia in other diseases classified elsewhere, unspecified severity, without behavioral disturbance, psychotic disturbance, mood disturbance, and anxiety; I10 Essential (primary) hypertension; N40.0 Benign prostatic hyperplasia without lower urinary tract symptoms; Z79.899 Other long term (current) drug therapy; Z79.82 Long term (current) use of aspirin; G20 Parkinson's disease; L30.4 Erythema intertrigo; M10.9 Gout, unspecified; L98.9 Disorder of the skin and subcutaneous tissue, unspecified; T43.505A Adverse effect of unspecified antipsychotics and neuroleptics, initial encounter; Y92.099 Unspecified place in other non-institutional residence as the place of occurrence of the external cause
CPT/HCPCS: 36415; 36569; 70450-TC; 71045-TC; 80048-TC; 80053-TC; 80061-TC; 80076-TC; 80305; 81000-TC; 82140-TC; 83540-TC; 83605-TC; 83735-TC; 84100-TC; 84443-TC; 84484-TC; 85025-TC; 85730-TC; 87040-TC; 87081-TC; G0378; G0480; J1650; J3475; J3490; J7040

== ENCOUNTER 2018-10-03 17:42 | Inpatient (IN) | payer MEDICARE ==
[~2018-10-03] VITALS: Ht 188 cm; Wt 73.6 kg
[~2018-10-03 17:42] MED LIST changes: +CLOT15CR63 TP; +TRAM50TA2 PO
--- NOTE | 2018-10-03 17:45 | NUR ---
DR BROWNLEE AT BEDSIDE
--- NOTE | 2018-10-03 17:46 | NUR ---
TARUN FROM FEVER AND ALOC; DISCHARGED FROM [facility] 10/02/18, TO ER BED 10, HOOKED TO MONITOR, CHANGED TO GOWN, PROVIDED W WARM BLANKET, AWAITING MD GONZALEZ
[2018-10-03] MEDS ORDERED: IV NS 0.9% 1,000 ML BAG IV ONE (18:00)
[2018-10-03 18:47] LABS: BASOPHILS # (AUTO) 0.1 /CMM (0.0-0.2); BASOPHILS % (AUTO) 0.3 % (0.0-2.0); EOSINOPHILS % (AUTO) 0.1 % (0.0-6.0); HEMATOCRIT 44 % (39-51); HEMOGLOBIN 14.3 g/dL (13.5-17.5); LYMPHOCYTES # (AUTO) 2.2 /CMM (0.8-4.8); LYMPHOCYTES % (AUTO) 13.1 % (20.0-44.0); MEAN CORPUSCULAR HGB CONC 33 g/dl (31.0-36.0); MEAN CORPUSCULAR VOLUME 95 fL (80-96); MONOCYTES # (AUTO) 0.9 /CMM (0.1-1.30); MONOCYTES % (AUTO) 5.4 % (2.0-12.0); NEUTROPHILS # (AUTO) 13.7 /CMM (1.8-8.9); NEUTROPHILS % (AUTO) 81.1 % (43.0-81.0); PLATELET COUNT (AUTO) 172 /CMM (150-450); RED BLOOD CELL COUNT(AUTO) 4.56 MIL/uL (4.5-6.0); WHITE BLOOD COUNT (AUTO) 16.9 K/uL (4.3-11.0)
[2018-10-03 18:57] LABS: CALCIUM, SERUM 8.6 mg/dL (8.5-10.1); CARBON DIOXIDE 29 mmol/L (21-32); CHLORIDE 106 mmol/L (98-107); CREATININE 1.5 mg/dL (0.6-1.3); GLUCOSE 114 mg/dL (74-106); POTASSIUM 4.8 mmol/L (3.5-5.1); SODIUM SERUM 140 mmol/L (136-145); UREA NITROGEN, BLOOD 25 mg/dL (7-18)
[2018-10-03 18:58] LABS: APPEARANCE,URINE Cloudy (CLEAR); BILIRUBIN,URINE Negative (NEGATIVE); BLOOD, URINE Large Ery/uL (NEGATIVE); COLOR,URINE Yellow (YELLOW); KETONES,URINE Negative (NEGATIVE); LEUKOCYTE ESTERASE ,URINE Large (NEGATIVE); NITRITE, URINE Negative (NEGATIVE); PROTEIN,URINE 100 mg/dl (NEGATIVE); UGLUCOSE Negative (NEGATIVE); UROBILINOGEN,URINE 0.2 EU/dL (0.2)
[2018-10-03] MEDS ORDERED: VANCOMYCIN 1 GM in IV D5W 250 ML IV ONE (19:00)
[2018-10-03] MEDS ORDERED: LEVOFLOXACIN 750 MG /D5W 150ML PIGGYBACK IV ONE (19:00)
[2018-10-03 19:02] LABS: ALANINE AMINOTRANSFERASE 13 U/L (12-78); ALBUMIN 2.4 g/dL (3.4-5.0); ALKALINE PHOSPHATASE 86 U/L (46-116); ASPARTATE AMINOTRANSFERASE 17 U/L (15-37); BILIRUBIN,DIRECT 0.1 mg/dL (0.0-0.2); BILIRUBIN,TOTAL 0.5 mg/dL (0.2-1.0); TOTAL PROTEIN, SERUM 6.2 g/dL (6.4-8.2)
[2018-10-03 19:09] LABS: BACTERIA,URINE Many /HPF (None Seen); RBC,URINE 21-50 /HPF (0-2); SQUAMOUS EPITHELIAL CELL,UR Few /HPF (None Seen); WBC,URINE TOO NUMEROUS TO COUN /HPF (0-3)
[2018-10-03] MEDS ORDERED: VANCOMYCIN 1 GM VIAL ONE (19:14)
--- NOTE | 2018-10-03 19:20 | NUR ---
PT NOTED WITH 02 SAT OF 92%. PLACED ON O2 VIA NC @ 2LPM SATTING AT 98%. MD MORRISON
[2018-10-03] MEDS ORDERED: IV NS 0.9% 1,000 ML IV ONE (19:30)
--- NOTE | 2018-10-03 19:32 | NUR ---
REPORT GIVEN TO MARYJO VUONG FOR ROMMEL
[2018-10-03] MEDS ORDERED: LEVOFLOXACIN 750 MG /D5W 150ML 150 ML IV ONE (20:18)
--- NOTE | 2018-10-03 20:41 | NUR ---
TELE BED 315-2
--- NOTE | 2018-10-03 21:24 | NUR ---
Fatemeh dominguez in [facility] - 10/03/18 at 2125 by TOMASZ REPORT GIVEN TO CAROLANN AKINS FOR ROMMEL. PT TO 315-2
--- NOTE | 2018-10-03 21:25 | NUR ---
REPORT GIVEN TO CAROLANN AKINS FOR ROMMEL. PT TO 315-2
--- NOTE | 2018-10-03 21:26 | NUR ---
motor operator notes Received Info from ER nurse CAROLANN Blake.
[2018-10-03 22:00] VITALS: BP 111/72
--- NOTE | 2018-10-03 22:01 | NUR ---
PT TRANSPORTED TO UNIT ON [facility]UL [facility]OROWITZ RN AND EMT AT BEDSIDE W/ ACLS PROTOCOL. NAD NOTED DURING TRANSPORT.
--- NOTE | 2018-10-03 22:15 | NUR ---
drapery cutter machine opening notes Received Pt from ER nurse CAROLANN Blake. Pt brought to the unit at 2150 by a gurgemini via ACLS. Pt is alert and oriented X1. Pt is laying in bed comfortably. Respiration is normal. NO SOB. No nausea or vomiting. No S/S of distress noted. PT is on carrier loader-SR. BP 111/72, P 113, TEMP 98.2, O2 SAT 93% ON 2L NC, R 18. Skin assessment checked and pictures taken and placed photos in Pt's chart. Skin care provided. Zguard and mepilex applied in sacrum area. Warm blanket applied for comfort. Instructed to call. Safety precautions is maintained. Bed at low position, brakes on, side railsX3, bed alarm on and call light is within reach.
[2018-10-03] MEDS ORDERED: ACETAMINOPHEN 325 MG TABLET PO PRN (22:30)
[2018-10-03] MEDS ORDERED: MAGNESIUM HYDROXIDE 30 ML UDC PO PRN (22:30)
[2018-10-03] MEDS ORDERED: Z GUARD REMEDY 2 OZ OINT TP PRN (22:30)
[2018-10-03] MEDS ORDERED: MAG HYDROX/AL HYDROX/SIMETH 30 ML UDC PO PRN (22:30)
[2018-10-03] MEDS ORDERED: ONDANSETRON HCL/PF 4 MG/2 ML VIAL IVP PRN (22:30)
--- NOTE | 2018-10-03 22:54 | NUR ---
player piano technician notes Called and faxed about Pt's medication Cefepime to nursing endless track vehicle supervisor.
[2018-10-03] MEDS: IV NS 0.9% 1,000 ML IV PRN (23:06)
[2018-10-03] MEDS ORDERED: CEFEPIME 1 GM VIAL ONE (23:20)
[2018-10-03] MEDS: CEFEPIME 2 GM in IV D5W 100 ML IV SCH (23:30)
--- NOTE | 2018-10-04 03:00 | NUR ---
software engineer advisor notes Pt's resting in bed comfortably. NO S/S of distress noted. Will continue to monitor.
[2018-10-04 05:32] VITALS: BP 100/67
[2018-10-04 07:08] LABS: BASOPHILS % (AUTO) 0.2 % (0.0-2.0); EOSINOPHILS % (AUTO) 0.1 % (0.0-6.0); HEMATOCRIT 36 % (39-51); HEMOGLOBIN 12.1 g/dL (13.5-17.5); LYMPHOCYTES # (AUTO) 1.8 /CMM (0.8-4.8); LYMPHOCYTES % (AUTO) 18.8 % (20.0-44.0); MEAN CORPUSCULAR HGB CONC 33 g/dl (31.0-36.0); MEAN CORPUSCULAR VOLUME 95 fL (80-96); MONOCYTES # (AUTO) 0.6 /CMM (0.1-1.30); MONOCYTES % (AUTO) 5.8 % (2.0-12.0); NEUTROPHILS # (AUTO) 7.4 /CMM (1.8-8.9); NEUTROPHILS % (AUTO) 75.1 % (43.0-81.0); PLATELET COUNT (AUTO) 122 /CMM (150-450); RED BLOOD CELL COUNT(AUTO) 3.82 MIL/uL (4.5-6.0); WHITE BLOOD COUNT (AUTO) 9.8 K/uL (4.3-11.0)
--- NOTE | 2018-10-04 07:15 | NUR ---
telephone advice nurse closing notes Pt is resting in bed comfortably. Awaken easily. NO SOB. No nausea or vomiting. NO S/S of distress noted. VS is stable. Pt is on operations supervisor chemical cleaning-SR. IV sites on RFA #20 is intact, patent and infusing well NS @100ml/hr. Routine meds were given and skin care provided. Safety precautions is maintained. Bed at low position and call light is within reach. Will endorse to morning nurse for ROMMEL.
[2018-10-04 07:26] LABS: CALCIUM, SERUM 7.7 mg/dL (8.5-10.1); CARBON DIOXIDE 24 mmol/L (21-32); CHLORIDE 111 mmol/L (98-107); CHOLESTEROL 79 mg/dL (<200); CREATININE 1.4 mg/dL (0.6-1.3); GLUCOSE 89 mg/dL (74-106); HDL CHOLESTEROL 38 mg/dL (40-60); LDL 31 mg/dL (0-99); MAGNESIUM 1.8 mg/dL (1.8-2.4); PHOSPHORUS 3.3 mg/dL (2.5-4.9); POTASSIUM 3.7 mmol/L (3.5-5.1); SODIUM SERUM 141 mmol/L (136-145); THYROID STIMULATING HORMONE 1.234 uIU/mL (0.358-3.74); TRIGLYCERIDES 46 mg/dL (30-150); UREA NITROGEN, BLOOD 25 mg/dL (7-18)
[2018-10-04 08:00] VITALS: BP 119/62
--- NOTE | 2018-10-04 08:00 | NUR ---
m/s painter helper sign: initial assessment received pt in bed awake, alert to self only, pt unable comprehend. pt is confused and disoriented to time, place, and situation. reality orientation provided prn. no apparent distress noted. will continue to monitor.
[2018-10-04] MEDS: MULTIVITAMINS,THERAGRAN 1 UDTAB TABLET PO SCH (08:43)
[2018-10-04] MEDS: CARBIDOPA/LEVODOPA 25/100 MG 1 UDTAB PO SCH ×2 (08:43→17:14)
[2018-10-04] MEDS: ALLOPURINOL 100 MG TABLET PO SCH (08:43)
[2018-10-04] MEDS: GABAPENTIN 100 MG CAPSULE PO SCH ×3 (08:43→17:14)
[2018-10-04] MEDS: ASPIRIN 81 MG TAB.CHEW PO SCH (08:43)
[2018-10-04] MEDS ORDERED: FEE PK DOSING 1 MIN EA MC ONE (08:44)
[2018-10-04] MEDS ORDERED: Medication Not On Formulary EA (Multivitamins 1 TAB) PO SCH (09:00)
--- NOTE | 2018-10-04 09:30 | NUR ---
m/s patient registration clerk: notes aram (acnp) here and informed md that pt keeps playing with his tele box by removing equipment with order to d'c tele. order read back and carried out and acknowledged.
--- NOTE | 2018-10-04 10:10 | NUR ---
m/s health education director: md visit seen and examined by aram (nanette) with order to start pt on puree diet. order carried out and acknowledged.
--- NOTE | 2018-10-04 10:28 | NUR ---
WOUND CARE CONSULT: PT FOLLOWED BY PLASTIC SURGERY TEAM FOR WOUND CARE. DEFER TO SURGICAL TEAM FOR WOUND TREATMENT PLAN. SKIN PROTECTION DISCUSSED WITH NURSING STAFF. WILL SEE PRN.
[2018-10-04] MEDS: IV NS 0.9% 1,000 ML IV PRN (11:40)
[2018-10-04] MEDS: CLOTRIMAZOLE 1% 15 GM TUBE TP SCH ×2 (11:47→17:19)
--- NOTE | 2018-10-04 12:00 | NUR ---
m/s drift miner: nephro consult seen by dr. villegas.
--- NOTE | 2018-10-04 13:25 | NUR ---
m/s heating fixture tender: plastic surgeon consult seen and examined by kanika fox) with new orders. orders acknowledged.
[2018-10-04] MEDS ORDERED: CLOTRIMAZOLE 1% 15 GM TUBE TP SCH (13:30)
[2018-10-04] MEDS: VANCOMYCIN 1 GM in IV D5W 250 ML IV SCH (13:35)
--- NOTE | 2018-10-04 15:00 | NUR ---
m/s software lead: notes pt remains confused and disoriented to time, place, and situation. reality orientation provided prn. will continue to monitor.
[2018-10-04 16:00] VITALS: BP 117/65
[2018-10-04] MEDS: ATORVASTATIN 10 MG TABLET PO SCH (17:14)
[2018-10-04] MEDS: QUETIAPINE FUMARATE 25 MG TABLET PO SCH (17:14)
--- NOTE | 2018-10-04 17:20 | NUR ---
m/s repairer handtools: notes pt pulled out his iv. inserted new iv to left forearm, gauge #22. iv fluids connected. reality orientation provided prn. dinner served. hob elevated. college service officer to assist with dinner. will continue to monitor.
--- NOTE | 2018-10-04 18:45 | NUR ---
m/s java analyst: notes in bed with eyes close. no s/s of distress noted. needs attended. will continue to monitor.
--- NOTE | 2018-10-04 19:10 | NUR ---
MS RN NOTES RECEIVED PT IN BED AWAKE AND VERBAL. PT A/O X1-2 WITH PERIODS OF CONFUSION. PT ABLE TO MAKE NEEDS KNOWN. RESPIRATIONS EVEN AND UNLABORED WITH NO S/S OF ACUTE DISTRESS OR SOB NOTED. NO COMPLAINTS OF PAIN AT THIS TIME. PT WITH RFA #20G RUNNING NS @100ML/HR. SAFETY MEASURES IN PLACE WITH BED IN LOWEST LOCKED POSITION WITH SIDE RAILS UP X2. CALL LIGHT WITHIN REACH. WILL CONTINUE TO MONITOR.
--- NOTE | 2018-10-04 19:25 | NUR ---
m/s assistant teaching professor: notes report given to ranjan (rn) for continuity of care.
[2018-10-04 20:00] VITALS: BP 98/62
[2018-10-04] MEDS: TAMSULOSIN 0.4 MG CAP.SR.24H GT SCH (22:00)
[2018-10-04] MEDS: CEFEPIME 2 GM in IV D5W 100 ML IV SCH (22:42)
[2018-10-05 06:24] LABS: CALCIUM, SERUM 8.4 mg/dL (8.5-10.1); CARBON DIOXIDE 26 mmol/L (21-32); CHLORIDE 112 mmol/L (98-107); CREATININE 1.5 mg/dL (0.6-1.3); GLUCOSE 92 mg/dL (74-106); MAGNESIUM 1.9 mg/dL (1.8-2.4); PHOSPHORUS 3.5 mg/dL (2.5-4.9); POTASSIUM 4.2 mmol/L (3.5-5.1); SODIUM SERUM 143 mmol/L (136-145); UREA NITROGEN, BLOOD 26 mg/dL (7-18)
[2018-10-05 06:25] LABS: BASOPHILS % (AUTO) 0.1 % (0.0-2.0); EOSINOPHILS % (AUTO) 0.9 % (0.0-6.0); HEMATOCRIT 38 % (39-51); HEMOGLOBIN 12.5 g/dL (13.5-17.5); LYMPHOCYTES # (AUTO) 1.2 /CMM (0.8-4.8); LYMPHOCYTES % (AUTO) 16.9 % (20.0-44.0); MEAN CORPUSCULAR HGB CONC 33 g/dl (31.0-36.0); MEAN CORPUSCULAR VOLUME 95 fL (80-96); MONOCYTES # (AUTO) 0.2 /CMM (0.1-1.30); MONOCYTES % (AUTO) 2.6 % (2.0-12.0); NEUTROPHILS # (AUTO) 5.8 /CMM (1.8-8.9); NEUTROPHILS % (AUTO) 79.5 % (43.0-81.0); PLATELET COUNT (AUTO) 149 /CMM (150-450); RED BLOOD CELL COUNT(AUTO) 4.01 MIL/uL (4.5-6.0); WHITE BLOOD COUNT (AUTO) 7.3 K/uL (4.3-11.0)
[2018-10-05] MEDS: VANCOMYCIN 1 GM in IV D5W 250 ML IV SCH (07:38)
[2018-10-05] MEDS: IV NS 0.9% 1,000 ML IV PRN ×2 (07:45→19:42)
--- NOTE | 2018-10-05 07:58 | NUR ---
MS RN NOTES PT IN BED AWAKE AND VERBAL. PT A/O X1-2 WITH PERIODS OF CONFUSION. PT ABLE TO MAKE NEEDS KNOWN. RESPIRATIONS EVEN AND UNLABORED WITH NO S/S OF ACUTE DISTRESS OR SOB NOTED THROUGHOUT SHIFT. TURNED PT Q2 HRS. NO COMPLAINTS OF PAIN NOTED AT THIS TIME. PT WITH RFA #20G RUNNING NS @100ML/HR. SAFETY MEASURES IN PLACE WITH BED IN LOWEST LOCKED POSITION WITH SIDE RAILS UP X2. PT KEPT CLEAN, DRY, AND COMFORTABLE. CALL LIGHT WITHIN REACH. WILL ENDORSE TO ONCOMING NURSE FOR ROMMEL.
[2018-10-05 08:00] VITALS: BP 111/65
--- NOTE | 2018-10-05 08:00 | NUR ---
RN NOTES RECEIVE PATIENT IN THE BED, A/A/O X1/2 CONFUSED. PATIENT HAS NO ACUTE RESPIRATORY DISTRESS, ON O2-2L,V/S TAKEN STABLE. ADMINISTERED SCHEDULED MEDICATION. ASSIST PATIENT EAT BY ELECTRICAL SUBCONTRACTOR. PATIENT HAS EDEMA BLE KEEP ELEVATED USING PILLOW. PATIENT TOTAL CARE, ASSIST TURN AND REPOSTION Q 2 HR, INCONTINENT APPLIED Z-GUARD. INFUSING NS AT RIGHT FA 100 ML/HR INTACT. CALL LIGHT WITHIN TO REACH, SAFETY PRECAUTION MAINTAINED ALL THE TIME.
[2018-10-05] MEDS: ALLOPURINOL 100 MG TABLET PO SCH (09:00)
[2018-10-05] MEDS: MULTIVITAMINS,THERAGRAN 1 UDTAB TABLET PO SCH (09:00)
[2018-10-05] MEDS: ASPIRIN 81 MG TAB.CHEW PO SCH (09:00)
[2018-10-05] MEDS: GABAPENTIN 100 MG CAPSULE PO SCH ×3 (09:00→17:32)
[2018-10-05] MEDS: CARBIDOPA/LEVODOPA 25/100 MG 1 UDTAB PO SCH ×2 (09:00→17:32)
[2018-10-05] MEDS: CLOTRIMAZOLE 1% 15 GM TUBE TP SCH ×2 (09:15→17:34)
[2018-10-05] MEDS: TRAMADOL HCL 50 MG TABLET PO PRN ×2 (10:17→17:33)
--- NOTE | 2018-10-05 10:17 | NUR ---
RN NOTES ADMINISTERED ULTRAM 50 MG PO PRN FOR BLE PAIN 09/09 PER PATIENT REQUEST, V/S TAKEN VW=293/65, P-82, CONTINUED MONITORING.
--- NOTE | 2018-10-05 12:00 | NUR ---
RN NOTES PATIENT STABLE, ASSIST TURN AND REPOSTION Q 2 HR. SCHEDULED MEDICATION ADMINISTERED. CONTINUED MONITORING.
[2018-10-05 16:00] VITALS: BP 100/60
[2018-10-05] MEDS: ATORVASTATIN 10 MG TABLET PO SCH (17:32)
[2018-10-05] MEDS: LACTOBACILLUS RHAMNOSUS GG 1 EACH CAP.SPRINK PO SCH (17:32)
[2018-10-05] MEDS: QUETIAPINE FUMARATE 25 MG TABLET PO SCH (17:32)
--- NOTE | 2018-10-05 18:30 | NUR ---
RN NOTES PATIENT CONFUSED, MEDICATION WERE ADMINISTERED EFFECTIVE. NO ACUTE RESPIRATORY DISTRESS, ASSIST TURN AND REPOSTION Q 2 HR. ADMINISTERED SCHEDULED MEDICATION, INFUSING NS AT 100 ML/HR ON RIGHT HAND INTACT. ENDORSED ONCOMING NURSE FOLLOW PLAN OF CARE.
--- NOTE | 2018-10-05 19:15 | NUR ---
MS RN OPENING NOTES: RECEIVED PT ON 2LPM VIA NC AND IS TOLERATING WELL. PT APPEARS TO BE CONFUSED HE IS MUMBLING WORDS AND STARING AT THE CEILING. IV ON R FA#20G IS INTACT AND IS BEING INFUSED WITH IV NS AT 100ML/HR. BED ALARM ACTIVATED. BED KEPT IN LOW, LOCKED POSITION, AND SIDE RAILS X 3UP. WILL REORIENT PRN. WILL CONTINUE TO MONITOR PT.
[2018-10-05 20:00] VITALS: BP 108/72
[2018-10-05] MEDS: TAMSULOSIN 0.4 MG CAP.SR.24H GT SCH (21:13)
[2018-10-05] MEDS: CEFEPIME 2 GM in IV D5W 100 ML IV SCH (22:07)
[2018-10-06] MEDS: VANCOMYCIN 1 GM in IV D5W 250 ML IV SCH ×2 (00:17→19:16)
[2018-10-06 06:25] LABS: EOSINOPHILS % (AUTO) 1.5 % (0.0-6.0); HEMATOCRIT 33 % (39-51); HEMOGLOBIN 10.9 g/dL (13.5-17.5); LYMPHOCYTES # (AUTO) 1.4 /CMM (0.8-4.8); LYMPHOCYTES % (AUTO) 30.9 % (20.0-44.0); MEAN CORPUSCULAR HGB CONC 34 g/dl (31.0-36.0); MEAN CORPUSCULAR VOLUME 95 fL (80-96); MONOCYTES # (AUTO) 0.3 /CMM (0.1-1.30); MONOCYTES % (AUTO) 7.1 % (2.0-12.0); NEUTROPHILS # (AUTO) 2.8 /CMM (1.8-8.9); NEUTROPHILS % (AUTO) 60.5 % (43.0-81.0); PLATELET COUNT (AUTO) 132 /CMM (150-450); RED BLOOD CELL COUNT(AUTO) 3.44 MIL/uL (4.5-6.0); WHITE BLOOD COUNT (AUTO) 4.7 K/uL (4.3-11.0)
[2018-10-06 06:49] LABS: CALCIUM, SERUM 7.5 mg/dL (8.5-10.1); CARBON DIOXIDE 24 mmol/L (21-32); CHLORIDE 109 mmol/L (98-107); CREATININE 1.4 mg/dL (0.6-1.3); GLUCOSE 83 mg/dL (74-106); MAGNESIUM 1.7 mg/dL (1.8-2.4); PHOSPHORUS 3.3 mg/dL (2.5-4.9); POTASSIUM 3.6 mmol/L (3.5-5.1); SODIUM SERUM 140 mmol/L (136-145); UREA NITROGEN, BLOOD 22 mg/dL (7-18)
--- NOTE | 2018-10-06 07:31 | NUR ---
MS RN CLOSING NOTES: ALL NEEDS WERE ATTENDED AND ANTICIPATED FOR. PT REMAINS ON 2LPM VIA NC AND IS TOLERATING WELL. PT ASLEEP AND RESTING COMFORTABLY. PT KEPT CLEAN, DRY, AND COMFORTABLE. NO SOB NOTED. NO S/S OF DISTRESS. IV ON R FOREARM BEING INFUSED WITH IV NS AT 100ML/HR. BED ALARM ACTIVATED. BED KEPT IN LOW, LOCKED POSITION, AND SIDE RAILS X 3 UP. ENDORSED TO AM NURSE FOR ROMMEL.
[2018-10-06 08:00] VITALS: BP 105/50
--- NOTE | 2018-10-06 08:00 | NUR ---
RN NOTES RECEIVED PATIENT IN THE BED SLEEPING. AROUSE WHEN CALLED NAME OR TOUCHED. PATIENT ON O22L NC, V/S STABLE, ASSIST TURN AND REPOSTION Q 2 HR. INFUSING NS AT 100 ML ON RIGHT HAND INTACT, CALL LIGHT WITHIN TO REACH. CONTINUED MONITORING.
[2018-10-06 08:35] VITALS: BP 105/49
--- NOTE | 2018-10-06 09:00 | NUR ---
RN NOTES PATIENT STABLE ASSIST EATING, ADMINISTERED SCHEDULED MEDICATION, NEEDS ATTENDED AND ANTICIPATED, ASSIST TURN AND REPOSTION Q 2 HR. INFUSING MAGNESIUM 100 ML/HR ON RIGHT HAND INTACT. CALL LIGHT WITHIN TO REACH. CONTINUED MONITORING.
[2018-10-06] MEDS: IV NS 0.9% 1,000 ML IV PRN ×2 (09:02→20:49)
[2018-10-06] MEDS: Magnesium 1GM/D5W 100ML PREMIX 100 ML IV SCH ×2 (09:02→10:18)
[2018-10-06] MEDS: ALLOPURINOL 100 MG TABLET PO SCH (09:09)
[2018-10-06] MEDS: CLOTRIMAZOLE 1% 15 GM TUBE TP SCH ×2 (09:10→17:41)
[2018-10-06] MEDS: MULTIVITAMINS,THERAGRAN 1 UDTAB TABLET PO SCH (09:10)
[2018-10-06] MEDS: GABAPENTIN 100 MG CAPSULE PO SCH ×3 (09:10→17:41)
[2018-10-06] MEDS: CARBIDOPA/LEVODOPA 25/100 MG 1 UDTAB PO SCH ×2 (09:10→17:41)
[2018-10-06] MEDS: ASPIRIN 81 MG TAB.CHEW PO SCH (09:10)
[2018-10-06] MEDS: LACTOBACILLUS RHAMNOSUS GG 1 EACH CAP.SPRINK PO SCH ×2 (09:10→17:41)
--- NOTE | 2018-10-06 12:36 | NUR ---
RN NOTES PATIENT A/O X1/2, CONFUSED, KEEP HOB ELEVATED, ASSIST EATING PATIENT EAT 100%, SCHEDULED MEDICATION ADMINISTERED.
[2018-10-06 16:00] VITALS: BP 120/77
[2018-10-06 16:57] VITALS: BP 120/77
[2018-10-06] MEDS: ATORVASTATIN 10 MG TABLET PO SCH (17:40)
[2018-10-06] MEDS: QUETIAPINE FUMARATE 25 MG TABLET PO SCH (17:41)
--- NOTE | 2018-10-06 18:30 | NUR ---
RN NOTES PATIENT STABLE INFUSING VANCOMYCIN 250 ML/HR/, ALSO ADMINISTERED SCHEDULED MEDICATION. V/S STABLE. PATIENT EAT 100 % WITH TOTAL ASSIST, ASSIST TURN AND REPOSITION Q 2 HR. CALL LIGHT WITHIN TO REACH. ENDORSED ONCOMING NURSE FOLLOW PLAN OF CARE.
--- NOTE | 2018-10-06 19:41 | NUR ---
MS RN OPENING NOTES: RECEIVED PT ON 2LPM VIA NC AND IS TOLERATING WELL. NO SOB NOTED. NO S/S OF DISTRESS. PT RESTING COMFORTABLY IN BED AT THIS TIME. PT HAS IV ON R FOREARM AND IS BEING INFUSED WITH VANCO 250ML/HR AT THIS TIME. BED ALARM ACTIVATED. PT APPEARS TO STILL BE CONFUSED HE CONTINUES TO MUMBLE UNCLEAR WORDS. BED KEPT IN LOW, LOCKED POSITION, AND SIDE RAILS X 2UP. WILL CONTINUE TO MONITOR PT.
[2018-10-06 20:00] VITALS: BP 107/65
[2018-10-06] MEDS: TAMSULOSIN 0.4 MG CAP.SR.24H GT SCH (21:01)
[2018-10-06] MEDS: CEFEPIME 2 GM in IV D5W 100 ML IV SCH (22:10)
--- NOTE | 2018-10-07 06:25 | NUR ---
MS RN CLOSING NOTES: ALL NEEDS WERE ATTENDED AND ANTICIPATED FOR. PT ON 2LPM VIA NC AND IS TOLERATING WELL. MAKE UP GIRL AT BEDSIDE AT THIS TIME. IV ON R HAND IS BEING INFUSED WITH IV NS AT 100ML/HR. PT TURNED AND REPOSITIONED Q2HRS. WOUND TX PERFORMED ORDERED. REORIENT PT PRN. BED ALARM ACTIVATED. BED KEPT IN LOW, LOCKED POSITION, AND SIDE RAILS X 2UP. WILL ENDORSE TO AM NURSE FOR ROMMEL.
[2018-10-07 07:11] LABS: BASOPHILS % (AUTO) 0.2 % (0.0-2.0); EOSINOPHILS % (AUTO) 2.6 % (0.0-6.0); HEMATOCRIT 31 % (39-51); HEMOGLOBIN 10.5 g/dL (13.5-17.5); LYMPHOCYTES # (AUTO) 1.2 /CMM (0.8-4.8); LYMPHOCYTES % (AUTO) 24.1 % (20.0-44.0); MEAN CORPUSCULAR HGB CONC 34 g/dl (31.0-36.0); MEAN CORPUSCULAR VOLUME 93 fL (80-96); MONOCYTES # (AUTO) 0.3 /CMM (0.1-1.30); NEUTROPHILS # (AUTO) 3.3 /CMM (1.8-8.9); NEUTROPHILS % (AUTO) 66.1 % (43.0-81.0); PLATELET COUNT (AUTO) 135 /CMM (150-450); RED BLOOD CELL COUNT(AUTO) 3.35 MIL/uL (4.5-6.0)
[2018-10-07 07:33] LABS: CALCIUM, SERUM 7.5 mg/dL (8.5-10.1); CARBON DIOXIDE 21 mmol/L (21-32); CHLORIDE 109 mmol/L (98-107); CREATININE 1.5 mg/dL (0.6-1.3); GLUCOSE 100 mg/dL (74-106); MAGNESIUM 2.1 mg/dL (1.8-2.4); PHOSPHORUS 3.1 mg/dL (2.5-4.9); POTASSIUM 3.8 mmol/L (3.5-5.1); SODIUM SERUM 139 mmol/L (136-145); UREA NITROGEN, BLOOD 21 mg/dL (7-18)
[2018-10-07 08:00] VITALS: BP 121/66
--- NOTE | 2018-10-07 08:00 | NUR ---
RN NOTE S RECEIVED PATIENT IN THE BED RESTING. AROUSE WHEN CALLED NAME OR TOUCHED, ASSIST EATING. PATIENT TOLERATED FOOD WELL. PATIENT INCONTINENT,V/S STABLE. USING Z-GUARD, ASSIST TURN AND REPOSTION Q 2 HR. INFUSING NS AT RIGHT HAND 100 ML/HR INTACT. CONTINUED MONITORING.
[2018-10-07] MEDS: ASPIRIN 81 MG TAB.CHEW PO SCH (08:24)
[2018-10-07] MEDS: CARBIDOPA/LEVODOPA 25/100 MG 1 UDTAB PO SCH ×2 (08:24→16:49)
[2018-10-07] MEDS: GABAPENTIN 100 MG CAPSULE PO SCH ×3 (08:24→16:49)
[2018-10-07] MEDS: LACTOBACILLUS RHAMNOSUS GG 1 EACH CAP.SPRINK PO SCH ×2 (08:24→16:49)
[2018-10-07] MEDS: ALLOPURINOL 100 MG TABLET PO SCH (08:24)
[2018-10-07] MEDS: MULTIVITAMINS,THERAGRAN 1 UDTAB TABLET PO SCH (08:24)
[2018-10-07] MEDS: CLOTRIMAZOLE 1% 15 GM TUBE TP SCH ×2 (08:25→16:50)
[2018-10-07] MEDS: IV NS 0.9% 1,000 ML IV PRN (08:38)
--- NOTE | 2018-10-07 09:20 | NUR ---
RN NOTES PATIENT CONFUSED, KEEP YELLING. PATIENT HAS NO ACUTE RESPIRATORY DISTRESS, REFUSED PAIN AT THIS TIME. ASSIST TURN AND REPOSTION Q 2 HR. ADMINISTERED SCHEDULED MEDICATION, PATIENT TOTAL CARE, ELEVATED LOWER EXTREMITIES USING PILLOWS, NEEDS ATTENDED AND ANTICIPATED, SAFETY PRECAUTION MAINTAINED ALL THE TIME.
[2018-10-07] MEDS ORDERED: IV NS 0.9% 1,000 ML IV PRN (13:01)
--- NOTE | 2018-10-07 13:43 | NUR ---
RN NOTES PATIENT IN THE BED. ADMINISTERED SCHEDULED MEDICATION, ASSIST TURN AND REPOSTION Q 2 HR. PATIENT CONFUSED, DELUSIONAL, TOTAL CARE. CONTINUED MONITORING.
[2018-10-07] MEDS: TRAMADOL HCL 50 MG TABLET PO PRN (15:51)
--- NOTE | 2018-10-07 15:51 | NUR ---
RN NOTES ADMINISTERED ULTRAM 50 MG PO PRN FOR PAIN 10/09 PER PATIENT REQUEST. V/S TAKEN BP-126/62, 74.
[2018-10-07 16:00] VITALS: BP 126/62
[2018-10-07] MEDS: ATORVASTATIN 10 MG TABLET PO SCH (16:52)
[2018-10-07] MEDS: QUETIAPINE FUMARATE 25 MG TABLET PO SCH (16:52)
--- NOTE | 2018-10-07 18:30 | NUR ---
RN NOTES PATIENT STABLE MEDICATION WERE ADMINISTERED FOR PAIN EFFECTIVE, ALSO ADMINISTERED SCHEDULED MEDICATION, V/S STABLE, ASSIST EAT. PATIENT TOLERATED FOOT 100%. ASSIST TURN AND REPOSTION Q2 HR. NEEDS ATTENDED AND ANTICIPATED. SAFETY PRECAUTION MAINTAINED ALL THE TIME.
--- NOTE | 2018-10-07 19:25 | NUR ---
rn pm opening note. bedside report recieved from tosin oquendo. patient seen in bed confused awake but in no apparent distress. breathing even and unlabored on room air. bed down locked srx3 ivf infusing to right ac with no s/s of infiltration. patient pulled iv out during day shift so arm sock is on right arm. bed alarm active. will cont to monitor.
[2018-10-07 20:00] VITALS: BP 109/84
[2018-10-07] MEDS ORDERED: VANCOMYCIN 1 GM in IV D5W 250 ML IV SCH (21:00)
[2018-10-07] MEDS: CEFEPIME 2 GM in IV D5W 100 ML IV SCH (22:08)
[2018-10-07] MEDS: TAMSULOSIN 0.4 MG CAP.SR.24H GT SCH (22:20)
--- NOTE | 2018-10-08 06:22 | NUR ---
rn pm closing note. patient in bed in no apparent distress. patient still confused. alert oriented to self. call light in reach. bed down and locked ns infusing to right ac with no s/s of infiltration. will cont to monitor and endorse to oncoming day shift.
[2018-10-08 07:53] LABS: BASOPHILS % (AUTO) 0.1 % (0.0-2.0); EOSINOPHILS % (AUTO) 0.9 % (0.0-6.0); HEMATOCRIT 32 % (39-51); HEMOGLOBIN 10.9 g/dL (13.5-17.5); LYMPHOCYTES # (AUTO) 1.6 /CMM (0.8-4.8); LYMPHOCYTES % (AUTO) 23.3 % (20.0-44.0); MEAN CORPUSCULAR HGB CONC 34 g/dl (31.0-36.0); MEAN CORPUSCULAR VOLUME 93 fL (80-96); MONOCYTES # (AUTO) 0.5 /CMM (0.1-1.30); MONOCYTES % (AUTO) 6.8 % (2.0-12.0); NEUTROPHILS # (AUTO) 4.6 /CMM (1.8-8.9); NEUTROPHILS % (AUTO) 68.9 % (43.0-81.0); PLATELET COUNT (AUTO) 144 /CMM (150-450); RED BLOOD CELL COUNT(AUTO) 3.44 MIL/uL (4.5-6.0); WHITE BLOOD COUNT (AUTO) 6.7 K/uL (4.3-11.0)
[2018-10-08 08:00] VITALS: BP 86/53
[2018-10-08 08:06] LABS: ALANINE AMINOTRANSFERASE 6 U/L (12-78); ALBUMIN 1.5 g/dL (3.4-5.0); ALKALINE PHOSPHATASE 76 U/L (46-116); ASPARTATE AMINOTRANSFERASE 18 U/L (15-37); BILIRUBIN,TOTAL 0.3 mg/dL (0.2-1.0); CALCIUM, SERUM 7.4 mg/dL (8.5-10.1); CARBON DIOXIDE 23 mmol/L (21-32); CHLORIDE 108 mmol/L (98-107); CREATININE 1.8 mg/dL (0.6-1.3); GLUCOSE 93 mg/dL (74-106); MAGNESIUM 1.8 mg/dL (1.8-2.4); PHOSPHORUS 2.9 mg/dL (2.5-4.9); POTASSIUM 3.9 mmol/L (3.5-5.1); SODIUM SERUM 140 mmol/L (136-145); TOTAL PROTEIN, SERUM 4.6 g/dL (6.4-8.2); UREA NITROGEN, BLOOD 20 mg/dL (7-18)
[2018-10-08] MEDS: CARBIDOPA/LEVODOPA 25/100 MG 1 UDTAB PO SCH ×2 (09:09→17:30)
[2018-10-08] MEDS: ALLOPURINOL 100 MG TABLET PO SCH (09:09)
[2018-10-08] MEDS: CLOTRIMAZOLE 1% 15 GM TUBE TP SCH ×2 (09:09→17:31)
[2018-10-08] MEDS: ASPIRIN 81 MG TAB.CHEW PO SCH (09:09)
[2018-10-08] MEDS: GABAPENTIN 100 MG CAPSULE PO SCH ×3 (09:09→17:30)
[2018-10-08] MEDS: LACTOBACILLUS RHAMNOSUS GG 1 EACH CAP.SPRINK PO SCH ×2 (09:09→17:30)
[2018-10-08] MEDS: MULTIVITAMINS,THERAGRAN 1 UDTAB TABLET PO SCH (09:09)
[2018-10-08 16:00] VITALS: BP 122/83
[2018-10-08] MEDS ORDERED: CEFEPIME 2 GM in IV NS 0.9% 50 ML IV SCH (17:00)
[2018-10-08] MEDS: ATORVASTATIN 10 MG TABLET PO SCH (17:31)
[2018-10-08] MEDS: QUETIAPINE FUMARATE 25 MG TABLET PO SCH (17:31)
[2018-10-08] MEDS: CEFEPIME 2 GM in IV NS 0.9% 100 ML IV SCH (17:40)
[2018-10-08 20:38] VITALS: BP 114/75
[2018-10-08] MEDS: TAMSULOSIN 0.4 MG CAP.SR.24H GT SCH (21:06)
[2018-10-09 01:48] LABS: APPEARANCE,URINE CLEAR (CLEAR); BILIRUBIN,URINE NEGATIVE (NEGATIVE); BLOOD, URINE 1+ Ery/uL (NEGATIVE); COLOR,URINE YELLOW (YELLOW); KETONES,URINE NEGATIVE (NEGATIVE); LEUKOCYTE ESTERASE ,URINE 3+ (NEGATIVE); NITRITE, URINE NEGATIVE (NEGATIVE); PROTEIN,URINE NEGATIVE (NEGATIVE); UGLUCOSE NEGATIVE (NEGATIVE); UROBILINOGEN,URINE 0.2 EU/dL (0.2)
[2018-10-09 02:01] LABS: CREATININE, URINE 20.9 MG/DL (30.0-125.0); URINE TOTAL PROTEIN 19.9 mg/dL (0-11.9)
[2018-10-09 02:03] LABS: BACTERIA,URINE Few /HPF (None Seen); SQUAMOUS EPITHELIAL CELL,UR Rare /HPF (None Seen); WBC,URINE TOO NUMEROUS TO COUN /HPF (0-3)
[2018-10-09 02:20] LABS: EOSINOPHIL,URINE None Seen
[2018-10-09] MEDS: CEFEPIME 2 GM in IV NS 0.9% 100 ML IV SCH ×2 (04:05→16:35)
--- NOTE | 2018-10-09 07:25 | NUR ---
MS RN INITIAL NOTES Report received at bedside. Patient received in bed, awake, and comfortable. Blood currently being drawn. Alert and oriented x1, to self only. No facial grimacing or moaning noted. No signs and symptoms of distress. Safety measures in place. Bed alarm in lowest position with bed alarm on and call light within reach. Will continue to monitor and assess patient
[2018-10-09 08:00] VITALS: BP 102/81
[2018-10-09 08:28] LABS: CALCIUM, SERUM 8.1 mg/dL (8.5-10.1); CARBON DIOXIDE 21 mmol/L (21-32); CHLORIDE 110 mmol/L (98-107); CREATININE 1.4 mg/dL (0.6-1.3); GLUCOSE 153 mg/dL (74-106); MAGNESIUM 2.1 mg/dL (1.8-2.4); PHOSPHORUS 3.2 mg/dL (2.5-4.9); POTASSIUM 4.1 mmol/L (3.5-5.1); SODIUM SERUM 140 mmol/L (136-145); UREA NITROGEN, BLOOD 20 mg/dL (7-18)
[2018-10-09] MEDS: CARBIDOPA/LEVODOPA 25/100 MG 1 UDTAB PO SCH ×2 (08:50→16:33)
[2018-10-09] MEDS: LACTOBACILLUS RHAMNOSUS GG 1 EACH CAP.SPRINK PO SCH ×2 (08:50→16:33)
[2018-10-09] MEDS: ALLOPURINOL 100 MG TABLET PO SCH (08:50)
[2018-10-09] MEDS: MULTIVITAMINS,THERAGRAN 1 UDTAB TABLET PO SCH (08:50)
[2018-10-09] MEDS: GABAPENTIN 100 MG CAPSULE PO SCH ×3 (08:50→16:33)
[2018-10-09] MEDS: ASPIRIN 81 MG TAB.CHEW PO SCH (08:50)
[2018-10-09] MEDS: CLOTRIMAZOLE 1% 15 GM TUBE TP SCH ×2 (08:52→16:37)
[2018-10-09 11:24] LABS: BASOPHILS % (AUTO) 0.4 % (0.0-2.0); HEMATOCRIT 35 % (39-51); HEMOGLOBIN 11.8 g/dL (13.5-17.5); LYMPHOCYTES # (AUTO) 1.5 /CMM (0.8-4.8); LYMPHOCYTES % (AUTO) 29.8 % (20.0-44.0); MEAN CORPUSCULAR HGB CONC 33 g/dl (31.0-36.0); MEAN CORPUSCULAR VOLUME 94 fL (80-96); MONOCYTES # (AUTO) 0.4 /CMM (0.1-1.30); MONOCYTES % (AUTO) 7.9 % (2.0-12.0); NEUTROPHILS % (AUTO) 57.9 % (43.0-81.0); PLATELET COUNT (AUTO) 176 /CMM (150-450); RED BLOOD CELL COUNT(AUTO) 3.78 MIL/uL (4.5-6.0); WHITE BLOOD COUNT (AUTO) 5.1 K/uL (4.3-11.0)
--- NOTE | 2018-10-09 15:15 | NUR ---
MS RN NOTES Patient pulled out his IV access. Cath tip intact. No bleeding noted. Will attempt to insert IV line
[2018-10-09 16:00] VITALS: BP 134/93
--- NOTE | 2018-10-09 17:18 | NUR ---
MS VUONG NOTES Patient pulled his IV out for the 2nd time. Will attempt to insert another IV access Addendum: 10/09/18 at 1719 by BROOKE DEL VALLE RN Cath tip intact with no bleeding noted Addendum: 10/09/18 at 1758 by BROOKE DEL VALLE RN IV successfully inserted on left forearm #24g. Will continue to monitor patient closely. Sleeves were applied last night until early today but was not effective.
[2018-10-09] MEDS: ATORVASTATIN 10 MG TABLET PO SCH (18:12)
[2018-10-09] MEDS: QUETIAPINE FUMARATE 25 MG TABLET PO SCH (18:12)
--- NOTE | 2018-10-09 19:00 | NUR ---
RN MS NOTES RECEIVED PATIENT IN BED AWAKE ALERT AND ORIENTED X 1, NOTED CONFUSED ATTEMPTING TO REMOVE IV TUBING LINES, ATTEMPTED TO REDIRECT PATIENT UNABLE TO FOLLOW INSTRUCTIONS. IV SITE TO RIGHT FA #24G INTACT AND PATENT , NO REDNESS, NO INFILTRATION PRESENT, IVF RUNNING ORDERED, ASPIRATION PRECAUTIONS IN PLACE, HEAD OF BED ELEVATED, SAFETY PRECAUTIONS IN PLACE, LOW BED AND LOCKED,SAFETY PRECAUTIONS IN PLACE, BED ALARM IN PLACE, HEELS OFFLOADED WITH PILLOWS, ON 2 L VIA NC NO SOB, NO RESPIRATORY DISTRESS PRESENT, ALL NEEDS ATTENDED AT THIS TIME, WILL CONTINUE TO MONITOR AND ATTEND TO NEEDS.
--- NOTE | 2018-10-09 19:21 | NUR ---
MS RN CLOSING NOTES Patient remained in bed, awake, and comfortable. All due meds given and tolerated. No signs and symptoms of distress. IV access remained in place, intact and patent. No facial grimacing or moaning noted. Kept patient clean, dry and comfortable. Assisted with feeding. Continue hospitalization and IVF treatment. V/S wnl. Safety measures in place. Bed in lowest position with bed alarm on and call light within reach. Endorsed to oncoming shift nurse
[2018-10-09 20:00] VITALS: BP 134/71
--- NOTE | 2018-10-09 21:08 | NUR ---
RN MS NOTES NOTIFIED MD. SHANKS NOTED PATIENT ATTEMPTING TO REMOVE AND BITE IV TUBING LINES AND UNABLE TO FOLLOW DIRECTIONS PATIENT IS A&0 X1 AND CONFUSED, UNABLE TO REDIRECT. RECEIVED NEW ORDER FOR SOFT BILATERAL MITTENS. WILL PLACE AND CONTINUE TO MONITOR.
[2018-10-09] MEDS: TAMSULOSIN 0.4 MG CAP.SR.24H GT SCH (21:40)
[2018-10-10] MEDS: CEFEPIME 2 GM in IV NS 0.9% 100 ML IV SCH ×2 (04:46→17:53)
--- NOTE | 2018-10-10 06:31 | NUR ---
RN MS NOTES PER CHART NOTED NO BM X 3 DAYS MILK OF MAGNESIUM GIVEN WILL CONTINUE TO MONITOR.
--- NOTE | 2018-10-10 07:18 | NUR ---
RN MS CLOSING NOTES PATIENT IN BED AWAKE ALERT AND ORIENTED X 1, NOTED CONFUSED ATTEMPTING TO REMOVE IV TUBING LINES, ATTEMPTED TO REDIRECT PATIENT UNABLE TO FOLLOW INSTRUCTIONS. BILATERAL MITTENS INTACT , SKIN ASSESSED, SKIN INTACT, CIRCULATION PRESENT, IV SITE TO RIGHT FA #24G INTACT AND PATENT , NO REDNESS, NO INFILTRATION PRESENT, IVF RUNNING ORDERED, ASPIRATION PRECAUTIONS IN PLACE, HEAD OF BED ELEVATED, SAFETY PRECAUTIONS IN PLACE, LOW BED AND LOCKED, BED ALARM IN PLACE, HEELS OFFLOADED WITH PILLOWS, PILLOW PLACED BETWEEN KNEES, SACRAL AREA REMAINS INTACT, OFFLOADED REPOSITIONED Q2HRS. HEELS INTACT, ON 2 L VIA NC NO SOB, NO RESPIRATORY DISTRESS PRESENT, ALL NEEDS ATTENDED AT THIS TIME, WILL CONTINUE TO MONITOR AND ATTEND TO NEEDS AND ENDORSE TO NEXT SHIFT.
--- NOTE | 2018-10-10 07:19 | NUR ---
MS RN OPENING NOTES: RECEIVED PT AWAKE IN BED IN NO ACUTE SIGNS OF DISTRESS. A/O X1-2. CONFUSED WITH B/L HAND MITTENS IN PLACE AND TRYING TO TAKE IT OFF. ON 02 AT 2LPM VIA N/C, RESPIRATIONS EVEN AND UNLABORED. IV ACCESS ON RFA INTACT AND PATENT, IVF OF NS AT 40ML/HR INFUSING, NO S/S OF INFILTRATIONS NOTED. SAFETY MEASURES IN PLACE. HOB ELEVATED. BED ALARM ON. BED IN LOW, LOCKED POSITION WITH SIDE RAILS X 3UP. CALL LIGHT WITHIN REACH. WILL REORIENT PRN. WILL CONTINUE TO MONITOR.
[2018-10-10 08:00] VITALS: BP 130/97
[2018-10-10] MEDS: CARBIDOPA/LEVODOPA 25/100 MG 1 UDTAB PO SCH ×2 (08:28→17:52)
[2018-10-10] MEDS: LACTOBACILLUS RHAMNOSUS GG 1 EACH CAP.SPRINK PO SCH ×2 (08:28→17:52)
[2018-10-10] MEDS: ALLOPURINOL 100 MG TABLET PO SCH (08:28)
[2018-10-10] MEDS: GABAPENTIN 100 MG CAPSULE PO SCH ×3 (08:28→17:52)
[2018-10-10] MEDS: MULTIVITAMINS,THERAGRAN 1 UDTAB TABLET PO SCH (08:28)
[2018-10-10] MEDS: ASPIRIN 81 MG TAB.CHEW PO SCH (08:28)
[2018-10-10] MEDS: CLOTRIMAZOLE 1% 15 GM TUBE TP SCH ×2 (08:29→17:53)
[2018-10-10 09:16] LABS: CALCIUM, SERUM 8.6 mg/dL (8.5-10.1); CARBON DIOXIDE 26 mmol/L (21-32); CHLORIDE 109 mmol/L (98-107); CREATININE 1.5 mg/dL (0.6-1.3); GLUCOSE 91 mg/dL (74-106); POTASSIUM 4.5 mmol/L (3.5-5.1); SODIUM SERUM 143 mmol/L (136-145); UREA NITROGEN, BLOOD 22 mg/dL (7-18)
[2018-10-10 16:00] VITALS: BP 137/93
[2018-10-10] MEDS: QUETIAPINE FUMARATE 25 MG TABLET PO SCH (17:52)
[2018-10-10] MEDS: ATORVASTATIN 10 MG TABLET PO SCH (17:52)
--- NOTE | 2018-10-10 19:12 | NUR ---
MS RN CLOSING NOTES: PT IN BED AWAKE AND LYING AT MODERATE HIGH BACKREST POSITION. A/O X1-2. CONFUSED WITH B/L HAND MITTENS IN PLACE WITH NO GOOD PERIPHERAL PULSES NOTED. ON SUPPLEMENTAL 02 AT 2LPM VIA N/C, RESPIRATIONS EVEN AND UNLABORED, NO SOB NOTED THROUGHOUT THE DAY. IV ACCESS ON RFA INTACT AND PATENT, NO S/S OF INFILTRATIONS NOTED. PT TURNED AND REPOSITIONED Q 2HRS AND PRN. KEEP CLEAN, DRY AND COMFORTABLE. ALL NEEDS AND CARE PROVIDED WELL. ALL SAFETY MEASURES KEPT IN PLACE. HOB ELEVATED. BED ALARM ON. BED IN LOW, LOCKED POSITION WITH SIDE RAILS X 3UP. CALL LIGHT WITHIN REACH. WILL REORIENT PRN. WILL ENDORSE TO LEVEL VIAL GRINDER NURSE FOR ROMMEL.
--- NOTE | 2018-10-10 19:30 | NUR ---
RN MS OPENING NOTES RECEIVED PATIENT IN BED ASLEEP. EASILY AROUSABLE. ALERT AND ORIENTED X1, CONFUSED. BREATHING EVEN AND UNLABORED. NO SOB NOTED. TOLERATING ROOM AIR. NO S/S OF PAIN OR DISCOMFORT. NO FACIAL GRIMACING. IV ON RIGHT FOREARM INTACT AND PATENT. PATIENT WITH BILATERAL MITTENS ON FOR SAFETY. SKIN ASSESSED - INTACT AND NO REDNESS NOTED. SKIN DRY AND WARM TO TOUCH. AFEBRILE. ALL OTHER NEEDS ATTENDED TO. HEAD OF BED ELEVATED. SAFETY MEASURES IN PLACE. CALL LIGHT WITHIN REACH. WILL CONTINUE TO MONITOR.
[2018-10-10 20:00] VITALS: BP 119/71
[2018-10-10] MEDS: TAMSULOSIN 0.4 MG CAP.SR.24H GT SCH (21:19)
--- NOTE | 2018-10-11 01:35 | NUR ---
RN NOTES RECEIVED PT,. FROM NURSE WARD, PT IS SLEEPING ON BILATERAL HAND MITTENS, NOT IN DISTRESS, NO PAIN NOTED, SIDERAILSUPX2, CONTINUE TO MONITOR
--- NOTE | 2018-10-11 01:41 | NUR ---
RN MS NOTES ROMMEL TRANSFERRED TO CAROLANN RAM. PATIENT SLEEPING. EASILY AROUSABLE. NOT IN ANY DISTRESS.
[2018-10-11] MEDS: CEFEPIME 2 GM in IV NS 0.9% 100 ML IV SCH ×2 (05:14→16:09)
--- NOTE | 2018-10-11 05:30 | NUR ---
RN NOTES GAVE APPLE SAUCE AND APPLE JUICE TO THE PATIENT
[2018-10-11 06:18] LABS: BASOPHILS % (AUTO) 0.3 % (0.0-2.0); HEMATOCRIT 37 % (39-51); HEMOGLOBIN 12.2 g/dL (13.5-17.5); LYMPHOCYTES # (AUTO) 2.4 /CMM (0.8-4.8); LYMPHOCYTES % (AUTO) 31.7 % (20.0-44.0); MEAN CORPUSCULAR HGB CONC 33 g/dl (31.0-36.0); MEAN CORPUSCULAR VOLUME 94 fL (80-96); MONOCYTES # (AUTO) 0.5 /CMM (0.1-1.30); NEUTROPHILS # (AUTO) 4.6 /CMM (1.8-8.9); PLATELET COUNT (AUTO) 235 /CMM (150-450); RED BLOOD CELL COUNT(AUTO) 3.98 MIL/uL (4.5-6.0); WHITE BLOOD COUNT (AUTO) 7.7 K/uL (4.3-11.0)
--- NOTE | 2018-10-11 06:28 | NUR ---
RN NOTES SLEEPING BUT AROUSABLE, MORNING CARE RENDERED, NOT IN DISTRESS, NO PAIN NOTED, SIDERAILSUPX2, PT. NEEDS ATTENDED
[2018-10-11 06:44] LABS: ALANINE AMINOTRANSFERASE 6 U/L (12-78); ALBUMIN 1.8 g/dL (3.4-5.0); ALKALINE PHOSPHATASE 85 U/L (46-116); ASPARTATE AMINOTRANSFERASE 18 U/L (15-37); BILIRUBIN,TOTAL 0.3 mg/dL (0.2-1.0); CALCIUM, SERUM 8.5 mg/dL (8.5-10.1); CARBON DIOXIDE 26 mmol/L (21-32); CHLORIDE 112 mmol/L (98-107); CREATININE 1.9 mg/dL (0.6-1.3); GLUCOSE 91 mg/dL (74-106); MAGNESIUM 2.3 mg/dL (1.8-2.4); POTASSIUM 4.6 mmol/L (3.5-5.1); SODIUM SERUM 145 mmol/L (136-145); TOTAL PROTEIN, SERUM 5.5 g/dL (6.4-8.2); UREA NITROGEN, BLOOD 27 mg/dL (7-18)
--- NOTE | 2018-10-11 07:44 | NUR ---
RN MS OPENING NOTES Patient remains on room air, no sob noted. patient remains confused at this time, has bilateral mittens on. RFA #24 IV remains patent. patient's bed at the lowest setting, call light within reach.
[2018-10-11] MEDS: ASPIRIN 81 MG TAB.CHEW PO SCH (08:14)
[2018-10-11] MEDS: LACTOBACILLUS RHAMNOSUS GG 1 EACH CAP.SPRINK PO SCH ×2 (08:14→16:27)
[2018-10-11] MEDS: MULTIVITAMINS,THERAGRAN 1 UDTAB TABLET PO SCH (08:14)
[2018-10-11] MEDS: ALLOPURINOL 100 MG TABLET PO SCH (08:14)
[2018-10-11] MEDS: CLOTRIMAZOLE 1% 15 GM TUBE TP SCH ×2 (08:14→16:29)
[2018-10-11] MEDS: CARBIDOPA/LEVODOPA 25/100 MG 1 UDTAB PO SCH ×2 (08:14→16:27)
[2018-10-11] MEDS: GABAPENTIN 100 MG CAPSULE PO SCH ×3 (08:14→16:27)
[2018-10-11 09:38] VITALS: BP 122/78
[2018-10-11 16:19] VITALS: BP 151/99
[2018-10-11] MEDS: QUETIAPINE FUMARATE 25 MG TABLET PO SCH (17:02)
[2018-10-11] MEDS: ATORVASTATIN 10 MG TABLET PO SCH (17:02)
--- NOTE | 2018-10-11 18:14 | NUR ---
RN MS CLOSING NOTES Patient remains on 2L nasal cannula, no sob noted, patient remains a/o x1. Patient shows no s/s of pain at this time. Bilateral mittens remains in place. to be renewed at 2100. patient able to swallow crushed medications on apple sauce. Bed at the lowest setting, call light within reach, will give report to NOC RN for ROMMEL bedside.
--- NOTE | 2018-10-11 20:00 | NUR ---
MS RN NOTES RECEIVED PATIENT ASLEEP IN BED WITH NO DISTRESS NOTED. CALL LIGHT WITHIN REACH. NO FACIAL GRIMACING OR GROANING TO INDICATE PAIN OR DISCOMFORT. PERIPHERAL LINE INTACT AND PATENT. BED IN LOW LOCK SETTING. ALL BELONGINGS KEPT NEAR BEDSIDE. WILL CONTINUE TO MONITOR
[2018-10-11 20:40] VITALS: BP 112/71
[2018-10-11] MEDS: TAMSULOSIN 0.4 MG CAP.SR.24H GT SCH (23:15)
--- NOTE | 2018-10-12 06:42 | NUR ---
MS RN NOTES PATIENT ASLEEP IN BED WITH NO DISTRESS NOTED. CALL LIGHT WITHIN REACH. PERIPHERAL LINE INTACT AND PATENT. SKIN CARE RENDERED AND TOLERATED WELL. NO FACIAL GRIMACING OR GROANING TO INDICATE PAIN OR DISCOMFORT. ALL DUE MEDS GIVEN ORDERED WITH NO ASE NOTED. BILATERAL HAND MITTENS INTACT WITH NO NEW SKIN BREAKDOWN OR DISCOLORATION AND NOTED WITH GOOD CIRCULATION. REMOVED Q2HRS AND PRN. BED IN LOW LOCK SETTING. ALL BELONGINGS KEPT NEAR BEDSIDE. WILL ENDORSE TO ONCOMING SHIFT.
[2018-10-12 06:51] LABS: BASOPHILS % (AUTO) 0.4 % (0.0-2.0); EOSINOPHILS % (AUTO) 1.9 % (0.0-6.0); HEMATOCRIT 35 % (39-51); HEMOGLOBIN 11.7 g/dL (13.5-17.5); LYMPHOCYTES # (AUTO) 2.1 /CMM (0.8-4.8); MEAN CORPUSCULAR HGB CONC 33 g/dl (31.0-36.0); MEAN CORPUSCULAR VOLUME 95 fL (80-96); MONOCYTES # (AUTO) 0.4 /CMM (0.1-1.30); MONOCYTES % (AUTO) 5.5 % (2.0-12.0); NEUTROPHILS # (AUTO) 5.1 /CMM (1.8-8.9); NEUTROPHILS % (AUTO) 65.2 % (43.0-81.0); PLATELET COUNT (AUTO) 227 /CMM (150-450); WHITE BLOOD COUNT (AUTO) 7.9 K/uL (4.3-11.0)
[2018-10-12 07:02] LABS: ALANINE AMINOTRANSFERASE 8 U/L (12-78); ALBUMIN 1.7 g/dL (3.4-5.0); ALKALINE PHOSPHATASE 87 U/L (46-116); ASPARTATE AMINOTRANSFERASE 17 U/L (15-37); BILIRUBIN,TOTAL 0.3 mg/dL (0.2-1.0); CALCIUM, SERUM 8.4 mg/dL (8.5-10.1); CARBON DIOXIDE 23 mmol/L (21-32); CHLORIDE 111 mmol/L (98-107); CREATININE 1.5 mg/dL (0.6-1.3); GLUCOSE 92 mg/dL (74-106); MAGNESIUM 2.1 mg/dL (1.8-2.4); PHOSPHORUS 3.5 mg/dL (2.5-4.9); POTASSIUM 4.2 mmol/L (3.5-5.1); SODIUM SERUM 144 mmol/L (136-145); TOTAL PROTEIN, SERUM 5.5 g/dL (6.4-8.2); UREA NITROGEN, BLOOD 27 mg/dL (7-18)
--- NOTE | 2018-10-12 07:29 | NUR ---
MS RN OPENING NOTES RECEIVED PATIENT IN BED SLEEPING, BREATHING ON OXYGEN 2L NC. PATIENT BREATHING IS EVEN AND UNLABORED. PATIENT IN NO ACUTE DISTRESS. NO SOB NOTED. NO FACIAL GRIMACING NOTED. PATIENT WITH BILATERAL SOFT WRIST RESTRAINTS IN PLACE. SAFETY PRECAUTIONS IN PLACE. PATIENT BED IS LOCKED AND IN LOWEST POSITION. CALL LIGHT WITHIN REACH. WILL CONTINUE TO MONITOR.
[2018-10-12 08:00] VITALS: BP 145/49
[2018-10-12] MEDS: ALLOPURINOL 100 MG TABLET PO SCH (08:35)
[2018-10-12] MEDS: ASPIRIN 81 MG TAB.CHEW PO SCH (08:35)
[2018-10-12] MEDS: LACTOBACILLUS RHAMNOSUS GG 1 EACH CAP.SPRINK PO SCH ×2 (08:35→16:05)
[2018-10-12] MEDS: MULTIVITAMINS,THERAGRAN 1 UDTAB TABLET PO SCH (08:35)
[2018-10-12] MEDS: CARBIDOPA/LEVODOPA 25/100 MG 1 UDTAB PO SCH ×2 (08:35→16:05)
[2018-10-12] MEDS: GABAPENTIN 100 MG CAPSULE PO SCH ×3 (08:35→16:05)
[2018-10-12] MEDS: CLOTRIMAZOLE 1% 15 GM TUBE TP SCH ×2 (08:36→16:06)
[2018-10-12 16:00] VITALS: BP 124/71
[2018-10-12] MEDS: ATORVASTATIN 10 MG TABLET PO SCH (17:44)
[2018-10-12] MEDS: QUETIAPINE FUMARATE 25 MG TABLET PO SCH (17:44)
--- NOTE | 2018-10-12 19:20 | NUR ---
MS RN CLOSING NOTE PATIENT IN BED RESTING COMFORTABLY BREATHING ON OXYGEN 2L NC. PATIENT BREATHING IS EVEN AND UNLABORED. PATIENT IN NO ACUTE DISTRESS. NO SOB NOTED. PATIENT KEPT CLEAN, DRY, COMFORTABLE, AND REPOSITIONED. ALL NURSING NEEDS MET. AMBULANCE TO COME AT 1945 FOR PATIENTS DISCHARGE. ENDORSED CARE TO PM SHIFT FOR AMBULANCE ARRIVAL. PATIENT DISCHARGE INSTRUCTIONS ALREADY PROVIDED. PATIENT UNABLE TO COMPREHEND. DISCHARGE PACKET PREPARED. BELONGINGS LIST SIGNED AND IN CHART. PATIENT UNABLE TO SIGN, TWO NURSES SIGNED AND WITNESSED. SKIN ASSESSED, NO NEW SKIN BREAKDOWN NOTED. PATIENT BED LOCKED AND IN LOWEST POSITION. CALL LIGHT WITHIN REACH. MD AWARE OF DISCHARGE. ENDORSED CARE AND DISCHARGE INFORMATION TO PM SHIFT.
--- NOTE | 2018-10-12 19:34 | NUR ---
MS RN RECEIVE PT IN BED AWAKE, ALERT NON VERBAL, STABLE, RESPIRATIONS EVEN AND UNLABORED, SAFETY MEASURES IN PLACE. WILL CONTINUE TO MONITOR
--- NOTE | 2018-10-12 21:17 | NUR ---
PATIENT DISCHARGE PATIENT LEFT VIA GURNEY NEWS REEL CAMERAMAN BY GALEN 2 EMT AT 2031 TO [facility], PATIENT ON STABLE CONDITION NO S/S OF DISTRESS NOTED, NO CHEST PAIN, VS STABLE BP 101/77 R 19 P 67 T 97.5 97% R.A, HEALTH EDUCATION AND EXIT CARE WAS PROVIDED TO THE PT AND [facility]. DOCUMENTS WAS PROVIDED TO EMT PERSONNEL. CONTINUE MEDICATION PRESCRIPTION WAS PROVIDED. REPORTED TO [facility]. HEPLOCK REMOVED. ALL BELONGINGS WAS TAKEN.
== END 2018-10-12 20:32 | disposition hospice, home (50) | DRG 682 ==
LOC: ER 17:44 → TELE 21:09 → MED 10-04 10:14
PROVIDERS: ADMIT Nurse Practitioner Acute Care; ATTEND Internal Medicine
DX: N17.0 Acute kidney failure with tubular necrosis (principal); J15.9 Unspecified bacterial pneumonia; E43 Unspecified severe protein-calorie malnutrition; G93.41 Metabolic encephalopathy; N39.0 Urinary tract infection, site not specified; E87.2 Acidosis; L30.4 Erythema intertrigo; N40.1 Benign prostatic hyperplasia with lower urinary tract symptoms; M10.9 Gout, unspecified; G20 Parkinson's disease; F02.80 Dementia in other diseases classified elsewhere, unspecified severity, without behavioral disturbance, psychotic disturbance, mood disturbance, and anxiety; Z79.82 Long term (current) use of aspirin; E88.09 Other disorders of plasma-protein metabolism, not elsewhere classified; Z68.20 Body mass index [BMI] 20.0-20.9, adult; L98.8 Other specified disorders of the skin and subcutaneous tissue; L90.5 Scar conditions and fibrosis of skin; B96.5 Pseudomonas (aeruginosa) (mallei) (pseudomallei) as the cause of diseases classified elsewhere; B96.1 Klebsiella pneumoniae [K. pneumoniae] as the cause of diseases classified elsewhere; Z88.0 Allergy status to penicillin; R40.2142 Coma scale, eyes open, spontaneous, at arrival to emergency department; R40.2242 Coma scale, best verbal response, confused conversation, at arrival to emergency department; R40.2362 Coma scale, best motor response, obeys commands, at arrival to emergency department
CPT/HCPCS: 36415; 70450-TC; 71045-TC; 76770-TC; 80048-TC; 80053-TC; 80061-TC; 80076-TC; 80202-TC; 81000-TC; 82570-TC; 83605-TC; 83735-TC; 84100-TC; 84155-TC; 84300-TC; 84443-TC; 84484-TC; 85025-TC; 85730-TC; 87040-TC; 87081-TC; 87086-TC; 87186-TC; 94799-TC; A4216; G0378; J0692; J1956; J3370; J3475; J7030; J7060